=== PATIENT | male | born 1970 | race American Indian/Alaskan Native ===

== ENCOUNTER 2020-08-27 03:18 | Observation (INO) | payer MEDICAID, OTHER ==
--- NOTE | 2020-08-27 03:26 | EDM.PDOC ---
ED HPI GENERAL MEDICAL PROBLEM - General Chief Complaint: Chest Pain Stated Complaint: AMBULANCE Time Seen by Provider: 08/27/20 03:26 Source of Information: Reports: Patient, EMS, EMS Notes Reviewed, RN, RN Notes Reviewed History Limitations: Reports: No Limitations - History of Present Illness INITIAL COMMENTS - FREE TEXT/NARRATIVE: Patient presents to ER per [facility] with complaint of shortness of breath and left lateral rib pain. Patient states he fell in the shower on Tuesday and has had left-sided rib pain since then. Patient states he does use IV meth, last used 2 to 3 days ago, as well as marijuana. Patient states he has a significant cardiac history, states he has been told he only had 4 months to live. Patient has had open heart surgery to replace valves, 3 to 4 years ago. Patient states he is from [place], states he is homeless and lives on the streets when he is in [place], states he comes back to the [facility] to visit his brother for a few weeks, then goes back to [place]. Onset: Gradual Left Flank Pain Score (Numeric/FACES): 8 - Related Data Allergies Allergy/AdvReac Type Severity Reaction Status Date / Time codeine Allergy Rash Verified 08/27/20 03:31 acetaminophen [From NyQuil] AdvReac Agitation Verified 08/27/20 03:31 dextromethorphan HBr AdvReac Agitation Verified 08/27/20 03:31 [From NyQuil] doxylamine succinate AdvReac Agitation Verified 08/27/20 03:31 [From NyQuil] pseudoephedrine HCl AdvReac Agitation Verified 08/27/20 03:31 [From NyQuil] Home Meds: Home Meds . [Unable to Verify Home Med List] 08/27/20 [History] Social & Family History - Tobacco Use Tobacco Use Status *Q: Current Every Day Tobacco User Years of Tobacco use: 30 Packs/Tins Daily: 0.3 Used Tobacco, but Quit: No Second Hand Smoke Exposure: No - Caffeine Use Caffeine Use: Reports: None - Recreational Drug Use Recreational Drug Use: Yes Drug Use in Last 12 Months: Yes Recreational Drug Type: Reports: Methamphetamine Recreational Drug Use Frequency: Binges ED ROS GENERAL - Review of Systems Review Of Systems: Comprehensive ROS is negative, except as noted in HPI. ED EXAM, GENERAL - Physical Exam Exam: See Below General Appearance: Alert, WD/WN, Anxious, Moderate Distress Eye Exam: Bilateral Eye: EOMI, Normal Inspection Ears: Normal External Exam, Hearing Grossly Normal Nose: Normal Inspection Throat/Mouth: Normal Inspection, Normal Voice, No Airway Compromise Head: Atraumatic, Normocephalic Neck: Normal Inspection, Supple, Non-Tender, Full Range of Motion Respiratory/Chest: No Respiratory Distress, No Accessory Muscle Use, Crackles (bases bilaterally), Other (left lateral rib pain, ecchymosis to the left lateral ribs) Cardiovascular: Regular Rate, Rhythm, Systolic Murmur, Other (+2-3 lower extremity edema) Peripheral Pulses: 1+: Dorsalis Pedis (L), Dorsalis Pedis (R), 2+: Radial (L), Radial (R) GI/Abdominal: Normal Bowel Sounds, Soft, Non-Tender (Male) Exam: Deferred Rectal (Males) Exam: Deferred Back Exam: Normal Inspection, Decreased Range of Motion Extremities: Non-Tender, Other (lower extremity edema +2-3, states feet are cold and hurt when they are cold) Neurological: Alert, Inattentive, Other (restless) Psychiatric: Anxious Skin Exam: Warm, Dry, Intact, Normal Color, No Rash, Ecchymosis (left lateral ribs) Lymphatic: No Adenopathy Course - Vital Signs Last Recorded V/S: Last Vital Signs Temp 97.2 F 08/27/20 03:13 Pulse 94 08/27/20 03:13 Resp 24 H 08/27/20 03:13 BP 110/76 08/27/20 03:13 Pulse Ox 95 08/27/20 03:13 - Orders/Labs/Meds Orders: Active Orders 24 hr Category Date Time Status EKG Documentation Completion [RC] STAT Care 08/27/20 03:19 Active Labs: Laboratory Tests 08/27/20 08/27/20 08/27/20 Range/Units 03:14 03:14 03:19 WBC 7.0 (5.0-10.0) 10^3/uL RBC 4.78 (4.6-6.2) 10^6/uL Hgb 13.9 L (14.0-18.0) g/dL Hct 42.2 (40.0-54.0) % MCV 88.3 (80-100) fL MCH 29.1 (27.0-34.0) pg MCHC 32.9 L (33.0-35.0) g/dL Plt Count 159 (150-450) 10^3/uL Neut % (Auto) 64.5 (42.2-75.2) % Lymph % (Auto) 18.7 L (20.5-50.1) % [place] % (Auto) 13.3 H (2-8) % Eos % (Auto) 1.9 (1.0-3.0) % Baso % (Auto) 1.6 H (0.0-1.0) % Add Manual Diff Yes Neutrophils % (Manual) 64 (42-75) % Lymphocytes % (Manual) 21 (20-50) % Monocytes % (Manual) 14 H (2-8) % Eosinophils % (Manual) 1 (1-3) % Platelet Estimate Adequate Sodium 138 (136-145) mmol/L Potassium 3.6 (3.5-5.1) mmol/L Chloride 103 (98-107) mmol/L Carbon Dioxide 30 (21-32) mmol/L Anion Gap 8.6 (7-13) mEq/L BUN 22 H (7-18) mg/dL Creatinine 1.56 H (0.70-1.30) mg/dL Est Cr Clr Drug Dosing 57.84 mL/min Estimated GFR (MDRD) 47 BUN/Creatinine Ratio 14.1 (No establ ref range) Glucose 105 H (74-99) mg/dL Calcium 8.5 (8.5-10.1) mg/dL Magnesium 2.0 (1.8-2.4) mg/dL Total Bilirubin 2.3 H (0.2-1.0) mg/dL AST 29 (15-37) U/L ALT 19 (16-63) U/L Alkaline Phosphatase 107 (46-116) U/L Troponin I < 0.017 (0.000-0.056) ng/mL C-Reactive Protein (0.0-0.9) mg/dL B-Natriuretic Peptide 173 H (0-100) pg/ml Total Protein 6.4 (6.4-8.2) g/dL Albumin 3.1 L (3.4-5.0) g/dL Globulin 3.3 Albumin/Globulin Ratio 0.94 Amylase (25-115) U/L Lipase (73-393) U/L Urine Color (YELLOW) Urine Appearance (CLEAR) Urine pH (5.0-9.0) Ur Specific [place] (1.005-1.030) Urine Protein (NEGATIVE) Urine Glucose (UA) (NEGATIVE) Urine Ketones (NEGATIVE) Urine Occult Blood (NEGATIVE) Urine Nitrite (NEGATIVE) Urine Bilirubin (NEGATIVE) Urine Urobilinogen (0.2-1.0) mg/dL Ur Leukocyte Esterase (NEGATIVE) Urine RBC /HPF Urine WBC (0-5/HPF) /HPF Ur Epithelial Cells (NOT SEEN) /HPF Amorphous Sediment (NOT SEEN) /HPF Urine Bacteria (0-FEW/HPF) /HPF Fine Granular Casts (NOT SEEN) /LPF Urine Mucus (NOT SEEN) /LPF Urine Opiates Screen (NEGATIVE) Ur Oxycodone Screen (NEGATIVE) Urine Methadone Screen (NEGATIVE) Ur Barbiturates Screen (NEGATIVE) U Tricyclic Antidepress (NEGATIVE) Ur Phencyclidine Scrn (NEGATIVE) Ur Amphetamine Screen (NEGATIVE) U Methamphetamines Scrn (NEGATIVE) Urine MDMA Screen (NEGATIVE) U Benzodiazepines Scrn (NEGATIVE) Urine Cocaine Screen (NEGATIVE) U Marijuana (THC) Screen (NEGATIVE) Ethyl Alcohol < 3 (0) mg/dL SARS CoV-2 RNA Rapid MILADY (NEGATIVE) 08/27/20 08/27/20 08/27/20 Range/Units 03:19 04:18 04:18 WBC (5.0-10.0) 10^3/uL RBC (4.6-6.2) 10^6/uL Hgb (14.0-18.0) g/dL Hct (40.0-54.0) % MCV (80-100) fL MCH (27.0-34.0) pg MCHC (33.0-35.0) g/dL Plt Count (150-450) 10^3/uL Neut % (Auto) (42.2-75.2) % Lymph % (Auto) (20.5-50.1) % [place] % (Auto) (2-8) % Eos % (Auto) (1.0-3.0) % Baso % (Auto) (0.0-1.0) % Add Manual Diff Neutrophils % (Manual) (42-75) % Lymphocytes % (Manual) (20-50) % Monocytes % (Manual) (2-8) % Eosinophils % (Manual) (1-3) % Platelet Estimate Sodium (136-145) mmol/L Potassium (3.5-5.1) mmol/L Chloride (98-107) mmol/L Carbon Dioxide (21-32) mmol/L Anion Gap (7-13) mEq/L BUN (7-18) mg/dL Creatinine (0.70-1.30) mg/dL Est Cr Clr Drug Dosing mL/min Estimated GFR (MDRD) BUN/Creatinine Ratio (No establ ref range) Glucose (74-99) mg/dL Calcium (8.5-10.1) mg/dL Magnesium (1.8-2.4) mg/dL Total Bilirubin (0.2-1.0) mg/dL AST (15-37) U/L ALT (16-63) U/L Alkaline Phosphatase (46-116) U/L Troponin I (0.000-0.056) ng/mL C-Reactive Protein 2.0 H (0.0-0.9) mg/dL B-Natriuretic Peptide (0-100) pg/ml Total Protein (6.4-8.2) g/dL Albumin (3.4-5.0) g/dL Globulin Albumin/Globulin Ratio Amylase 24 L (25-115) U/L Lipase 57 L (73-393) U/L Urine Color Yellow (YELLOW) Urine Appearance Clear (CLEAR) Urine pH 5.5 (5.0-9.0) Ur Specific [place] >= 1.030 (1.005-1.030) Urine Protein 30 H (NEGATIVE) Urine Glucose (UA) Negative (NEGATIVE) Urine Ketones Negative (NEGATIVE) Urine Occult Blood Negative (NEGATIVE) Urine Nitrite Negative (NEGATIVE) Urine Bilirubin Negative (NEGATIVE) Urine Urobilinogen 1.0 (0.2-1.0) mg/dL Ur Leukocyte Esterase Negative (NEGATIVE) Urine RBC Not seen /HPF Urine WBC 0-5 (0-5/HPF) /HPF Ur Epithelial Cells Few (NOT SEEN) /HPF Amorphous Sediment Few (NOT SEEN) /HPF Urine Bacteria Rare (0-FEW/HPF) /HPF Fine Granular Casts Occasional H (NOT SEEN) /LPF Urine Mucus Rare (NOT SEEN) /LPF Urine Opiates Screen Negative (NEGATIVE) Ur Oxycodone Screen Positive H (NEGATIVE) Urine Methadone Screen Negative (NEGATIVE) Ur Barbiturates Screen Negative (NEGATIVE) U Tricyclic Antidepress Negative (NEGATIVE) Ur Phencyclidine Scrn Negative (NEGATIVE) Ur Amphetamine Screen Positive H (NEGATIVE) U Methamphetamines Scrn Positive H (NEGATIVE) Urine MDMA Screen Negative (NEGATIVE) U Benzodiazepines Scrn Negative (NEGATIVE) Urine Cocaine Screen Negative (NEGATIVE) U Marijuana (THC) Screen Positive H (NEGATIVE) Ethyl Alcohol (0) mg/dL SARS CoV-2 RNA Rapid MILADY (NEGATIVE) 08/27/20 Range/Units 04:55 WBC (5.0-10.0) 10^3/uL RBC (4.6-6.2) 10^6/uL Hgb (14.0-18.0) g/dL Hct (40.0-54.0) % MCV (80-100) fL MCH (27.0-34.0) pg MCHC (33.0-35.0) g/dL Plt Count (150-450) 10^3/uL Neut % (Auto) (42.2-75.2) % Lymph % (Auto) (20.5-50.1) % [place] % (Auto) (2-8) % Eos % (Auto) (1.0-3.0) % Baso % (Auto) (0.0-1.0) % Add Manual Diff Neutrophils % (Manual) (42-75) % Lymphocytes % (Manual) (20-50) % Monocytes % (Manual) (2-8) % Eosinophils % (Manual) (1-3) % Platelet Estimate Sodium (136-145) mmol/L Potassium (3.5-5.1) mmol/L Chloride (98-107) mmol/L Carbon Dioxide (21-32) mmol/L Anion Gap (7-13) mEq/L BUN (7-18) mg/dL Creatinine (0.70-1.30) mg/dL Est Cr Clr Drug Dosing mL/min Estimated GFR (MDRD) BUN/Creatinine Ratio (No establ ref range) Glucose (74-99) mg/dL Calcium (8.5-10.1) mg/dL Magnesium (1.8-2.4) mg/dL Total Bilirubin (0.2-1.0) mg/dL AST (15-37) U/L ALT (16-63) U/L Alkaline Phosphatase (46-116) U/L Troponin I (0.000-0.056) ng/mL C-Reactive Protein (0.0-0.9) mg/dL B-Natriuretic Peptide (0-100) pg/ml Total Protein (6.4-8.2) g/dL Albumin (3.4-5.0) g/dL Globulin Albumin/Globulin Ratio Amylase (25-115) U/L Lipase (73-393) U/L Urine Color (YELLOW) Urine Appearance (CLEAR) Urine pH (5.0-9.0) Ur Specific [place] (1.005-1.030) Urine Protein (NEGATIVE) Urine Glucose (UA) (NEGATIVE) Urine Ketones (NEGATIVE) Urine Occult Blood (NEGATIVE) Urine Nitrite (NEGATIVE) Urine Bilirubin (NEGATIVE) Urine Urobilinogen (0.2-1.0) mg/dL Ur Leukocyte Esterase (NEGATIVE) Urine RBC /HPF Urine WBC (0-5/HPF) /HPF Ur Epithelial Cells (NOT SEEN) /HPF Amorphous Sediment (NOT SEEN) /HPF Urine Bacteria (0-FEW/HPF) /HPF Fine Granular Casts (NOT SEEN) /LPF Urine Mucus (NOT SEEN) /LPF Urine Opiates Screen (NEGATIVE) Ur Oxycodone Screen (NEGATIVE) Urine Methadone Screen (NEGATIVE) Ur Barbiturates Screen (NEGATIVE) U Tricyclic Antidepress (NEGATIVE) Ur Phencyclidine Scrn (NEGATIVE) Ur Amphetamine Screen (NEGATIVE) U Methamphetamines Scrn (NEGATIVE) Urine MDMA Screen (NEGATIVE) U Benzodiazepines Scrn (NEGATIVE) Urine Cocaine Screen (NEGATIVE) U Marijuana (THC) Screen (NEGATIVE) Ethyl Alcohol (0) mg/dL SARS CoV-2 RNA Rapid MILADY Negative (NEGATIVE) Meds: Medications Discontinued Medications Generic Name Dose Route Start Last Admin Trade Name Freq PRN Reason Stop Dose Admin Fentanyl 50 mcg 08/27/20 04:28 08/27/20 04:35 Sublimaze IVPUSH 08/27/20 04:29 50 mcg ONETIME ONE Administration Lorazepam 0.5 mg 08/27/20 04:01 08/27/20 04:05 Ativan IVPUSH 08/27/20 04:02 0.5 mg ONETIME ONE Administration - Radiology Interpretation Free Text/Narrative:: CT Chest Abdomen/Pelvis wo contrast: PROCEDURE INFORMATION: Exam: CT Chest Without Contrast; Diagnostic Exam date and time: 08/27/2020 5:09 AM Age: 49 years old Clinical indication: Other: Low rib pain, fell in shower; Other: Left rib pain; Additional info: SOB, left lateral rib pain TECHNIQUE: Imaging protocol: Diagnostic computed tomography of the chest without contrast. Radiation optimization: All CT scans at this facility use at least one of these dose optimization techniques: automated exposure control; mA and/or kV adjustment per patient size (includes targeted exams where dose is matched to clinical indication); or iterative reconstruction. COMPARISON: No relevant prior studies available. FINDINGS: Lungs: Bilateral dependent atelectasis. Pleural space: Unremarkable. No pneumothorax. No pleural effusion. Heart: Status post median sternotomy and probably mitral valve replacement. Cardiomegaly. Aorta: Unremarkable. No aortic aneurysm. Lymph nodes: Unremarkable. No enlarged lymph nodes. Bones/joints: Multilevel degenerative disease of the thoracic spine. Age- indeterminate possibly acute fracture of the left anterior 5th rib at the costochondral junction. Soft tissues: Unremarkable. IMPRESSION: Age-indeterminate possibly acute fracture of the left anterior 5th rib at the costochondral junction. No pneumothorax. No pulmonary contusions. PROCEDURE INFORMATION: Exam: CT Abdomen And Pelvis Without Contrast Exam date and time: 08/27/2020 5:09 AM Age: 49 years old Clinical indication: Other: Low rib pain, fell in shower; Other: Left rib pain; Additional info: SOB, left lateral rib pain TECHNIQUE: Imaging protocol: Computed tomography of the abdomen and pelvis without contrast. Radiation optimization: All CT scans at this facility use at least one of these dose optimization techniques: automated exposure control; mA and/or kV adjustment per patient size (includes targeted exams where dose is matched to clinical indication); or iterative reconstructi on. COMPARISON: No relevant prior studies available. FINDINGS: Liver: Normal. No mass. Gallbladder and bile ducts: Nonspecific stranding of the pericholecystic fat. Pancreas: Normal. No ductal dilation. Spleen: Normal. No splenomegaly. Adrenal glands: Normal. No mass. Kidneys and ureters: Nonspecific bilateral perinephric fat stranding. Stomach and bowel: Unremarkable. No obstruction. No mucosal thickening. Appendix: No evidence of appendicitis. Intraperitoneal space: Small ascites. Vasculature: Atherosclerotic disease. Lymph nodes: Bilateral inguinal adenopathy, left worse than right. Urinary bladder: Unremarkable as visualized. Reproductive: Unremarkable as visualized. Bones/joints: Unremarkable. No acute fracture. Soft tissues: Unremarkable. Other findings: Degraded by motion. IMPRESSION: Suboptimal due to lack of intravenous contrast and motion degradation. Small ascites. Nonspecific bilateral perinephric fat stranding. No acute fractures. Thank you for allowing us to participate in the care of your patient. Dictated and Authenticated by: Saúl Lutz MD 08/27/2020 5:53 AM Central Time ([place] & [place]) See rad report - Re-Assessments/Exams Free Text/Narrative Re-Assessment/Exam: 08/27/20 06:34 Discussed patient case with Dr. Mclaughlin who agreed to accept the patient for observation admission. Departure - Departure Time of Disposition: 06:36 Disposition: Refer to Observation Reason for Transfer *Q: Other Condition: Fair Clinical Impression: Methamphetamine intoxication Right rib fracture Qualifiers: Encounter type: initial encounter Rib fracture type: single rib Fracture type: closed Qualified Code(s): S22.31XA - Fracture of one rib, right side, initial encounter for closed fracture Forms: ED Department Discharge Sepsis Event Note (ED) - Evaluation Sepsis Screening Result: No Definite Risk - Focused Exam Vital Signs: Vital Signs Temp Pulse Resp BP Pulse Ox 08/27/20 03:13 97.2 F 94 24 H 110/76 95 - My Orders Last 24 Hours: My Active Orders 08/27/20 03:19 EKG Documentation Completion [RC] STAT - Assessment/Plan Last 24 Hours: My Active Orders 08/27/20 03:19 EKG Documentation Completion [RC] STAT
[2020-08-27 03:45] LABS: ANION GAP 8.6 mEq/L (7-13); CHLORIDE,CL 103 mmol/L (98-107); SODIUM,NA 138 mmol/L (136-145)
[2020-08-27] MEDS ORDERED: LORazepam 2 MG/ML SDV IVPUSH ONE (04:01)
[2020-08-27] MEDS ORDERED: fentaNYL 100 MCG/2 ML SDV IVPUSH ONE (04:28)
--- NOTE | 2020-08-27 05:53 | CT ---
PROCEDURE INFORMATION: Exam: CT Chest Without Contrast; Diagnostic Exam date and time: 08/27/2020 5:09 AM Age: 49 years old Clinical indication: Other: Low rib pain, fell in shower; Other: Left rib pain; Additional info: SOB, left lateral rib pain TECHNIQUE: Imaging protocol: Diagnostic computed tomography of the chest without contrast. Radiation optimization: All CT scans at this facility use at least one of these dose optimization techniques: automated exposure control; mA and/or kV adjustment per patient size (includes targeted exams where dose is matched to clinical indication); or iterative reconstruction. COMPARISON: No relevant prior studies available. FINDINGS: Lungs: Bilateral dependent atelectasis. Pleural space: Unremarkable. No pneumothorax. No pleural effusion. Heart: Status post median sternotomy and probably mitral valve replacement. Cardiomegaly. Aorta: Unremarkable. No aortic aneurysm. Lymph nodes: Unremarkable. No enlarged lymph nodes. Bones/joints: Multilevel degenerative disease of the thoracic spine. Age-indeterminate possibly acute fracture of the left anterior 5th rib at the costochondral junction. Soft tissues: Unremarkable. IMPRESSION: Age-indeterminate possibly acute fracture of the left anterior 5th rib at the costochondral junction. No pneumothorax. No pulmonary contusions. PROCEDURE INFORMATION: Exam: CT Abdomen And Pelvis Without Contrast Exam date and time: 08/27/2020 5:09 AM Age: 49 years old Clinical indication: Other: Low rib pain, fell in shower; Other: Left rib pain; Additional info: SOB, left lateral rib pain TECHNIQUE: Imaging protocol: Computed tomography of the abdomen and pelvis without contrast. Radiation optimization: All CT scans at this facility use at least one of these dose optimization techniques: automated exposure control; mA and/or kV adjustment per patient size (includes targeted exams where dose is matched to clinical indication); or iterative reconstruction. COMPARISON: No relevant prior studies available. FINDINGS: Liver: Normal. No mass. Gallbladder and bile ducts: Nonspecific stranding of the pericholecystic fat. Pancreas: Normal. No ductal dilation. Spleen: Normal. No splenomegaly. Adrenal glands: Normal. No mass. Kidneys and ureters: Nonspecific bilateral perinephric fat stranding. Stomach and bowel: Unremarkable. No obstruction. No mucosal thickening. Appendix: No evidence of appendicitis. Intraperitoneal space: Small ascites. Vasculature: Atherosclerotic disease. Lymph nodes: Bilateral inguinal adenopathy, left worse than right. Urinary bladder: Unremarkable as visualized. Reproductive: Unremarkable as visualized. Bones/joints: Unremarkable. No acute fracture. Soft tissues: Unremarkable. Other findings: Degraded by motion. IMPRESSION: Suboptimal due to lack of intravenous contrast and motion degradation. Small ascites. Nonspecific bilateral perinephric fat stranding. No acute fractures.
[2020-08-27] MEDS ORDERED: Sodium Chloride 0.9% 10 ML Syringe FLUSH PRN (07:53)
[2020-08-27] MEDS ORDERED: Acetaminophen 325 MG Tab PO PRN (07:53)
[2020-08-27] MEDS ORDERED: Docusate Sodium 100 MG Cap PO PRN (07:53)
[2020-08-27] MEDS ORDERED: Non-Formulary Medication 1 Each (Ketoconazole [Nizoral 2% Crm] 1 APPLIC) TOP PRN (08:58)
[2020-08-27] MEDS: Carvedilol 3.125 MG Tab PO SCH (10:18)
[2020-08-27] MEDS: Thiamine 100 MG Tab PO SCH (10:18)
[2020-08-27] MEDS: atorvaSTATin 10 MG Tab PO SCH (10:19)
[2020-08-27] MEDS: Furosemide 40 MG Tab PO SCH (10:19)
[2020-08-27] MEDS: Folic Acid 1 MG Tab PO SCH (10:19)
[2020-08-27] MEDS: Aspirin 81 MG Tab.EC PO SCH (10:19)
[2020-08-27] MEDS: Gabapentin 300 MG Cap PO SCH ×3 (10:19→20:08)
[2020-08-27] MEDS: Lisinopril 5 MG Tab PO SCH (10:19)
[2020-08-27] MEDS ORDERED: QUEtiapine 100 MG Tab PO SCH ×2 (11:00→21:00)
[2020-08-27] MEDS: Nicotine 21 MG/24 Hr Patch TRDERM SCH (11:12)
[2020-08-27] MEDS: Enoxaparin 40 MG/0.4 ML Syringe SUBCUT SCH (11:13)
--- NOTE | 2020-08-27 14:48 | HP ---
CHIEF COMPLAINT: Chest pain. HISTORY OF PRESENT ILLNESS: The patient is a 49-year-old male who was admitted through the emergency room because the patient was complaining of shortness of breath and left rib cage pain. The patient mentioned that about 5 days ago he fell in the shower and since then had left-sided rib pain. This is also accompanied by some shortness of breath. In the emergency room, the patient had a CAT scan of the chest, which showed rib fracture on the 5th rib. The patient was also noted to be positive for methamphetamine and marijuana. Because of the patient's agitation and restlessness and chest pain, the patient was admitted to observation. The patient denies any fever or chills, headache, abdominal pain, cough, nor any other complaints. PAST MEDICAL HISTORY: The patient has history of valve replacement, pulmonary hypertension, and history of CHF. HOME MEDICATIONS: Not available at this time. REVIEW OF SYSTEMS: As in HPI. The rest of the review of systems is negative. ALLERGIES: Codeine, NyQuil, dextromethorphan, doxylamine, and pseudoephedrine. SOCIAL HISTORY: The patient is from [place]. Smokes cigarettes, but denies any alcohol drinks, but does illicit drug use. PHYSICAL EXAMINATION: General: The patient is alert, oriented, not in any acute distress. Vital Signs: Blood pressure is 110/76, pulse of 94, respirations 24, temperature of 97.2, pulse oximetry is 95% on room air. SHEENT: Normocephalic. There are pink palpebral conjunctivae. Sclerae anicteric. No JVD. No lymphadenopathy. No signs of trauma. Neck: Supple. Heart: Regular. There is a grade 2/6 systolic ejection murmur. No rubs. Lungs: Equal bilaterally. No crackles, no wheezing. Abdomen: Mild to moderately obese, soft, nontender. Bowel sounds positive. Extremities: Negative for any pedal edema. No gross deformities. Chest Wall: Remarkable for reproducible tenderness with palpation on the left chest wall area. Neurologic: Negative for any lateralizing signs. LABORATORY DATA: CBC: WBC is 7, hemoglobin is 13.9, hematocrit 42.2, platelets are 159. Comp panel remarkable for BUN of 22, creatinine of 1.56, glucose of 105, total bilirubin of 2.3, and the rest of the panel unremarkable. Troponin is less than 0.017. BNP is 173. Urinalysis unremarkable. Urine drug screen is positive for oxycodone and amphetamine and methamphetamine and marijuana. CAT scan of the chest and abdomen showed suboptimal due to lack of intravenous contrast. There is small ascites. There is possibly acute fracture of the left anterior 5th rib at the costochondral junction. Otherwise, CAT scan of the chest unremarkable. ADMITTING DIAGNOSES: 1. History of fall with chest wall pain and rib fracture on the left 5th rib. 2. Methamphetamine use and intoxication. 3. History of heart valve replacement. 4. History of pulmonary hypertension. TREATMENT PLAN: The patient is going to be admitted to observation for pain management and the rest of the management as necessary. The patient is a full code as per his wishes. We will also obtain his medication and will resume it. [facility] /[id number]
[2020-08-27] MEDS: Tamsulosin 0.4 MG Cap.ER PO SCH (15:09)
[2020-08-27] MEDS: traMADol 50 MG Tab PO PRN (20:07)
[2020-08-27] MEDS: Doxycycline Monohydrate 100 MG Cap PO SCH (21:15)
[2020-08-28] MEDS: traMADol 50 MG Tab PO PRN ×2 (03:15→09:18)
[2020-08-28] MEDS: Aspirin 81 MG Tab.EC PO SCH (09:17)
[2020-08-28] MEDS: Thiamine 100 MG Tab PO SCH (09:17)
[2020-08-28] MEDS: Lisinopril 5 MG Tab PO SCH (09:17)
[2020-08-28] MEDS: Gabapentin 300 MG Cap PO SCH (09:19)
[2020-08-28] MEDS: Carvedilol 3.125 MG Tab PO SCH (09:20)
[2020-08-28] MEDS: Folic Acid 1 MG Tab PO SCH (09:20)
[2020-08-28] MEDS: Doxycycline Monohydrate 100 MG Cap PO SCH (09:20)
[2020-08-28] MEDS: atorvaSTATin 10 MG Tab PO SCH (09:20)
[2020-08-28] MEDS: Furosemide 40 MG Tab PO SCH (09:20)
[2020-08-28] MEDS: Nicotine 21 MG/24 Hr Patch TRDERM SCH (09:22)
[2020-08-28] MEDS: Enoxaparin 40 MG/0.4 ML Syringe SUBCUT SCH (09:22)
[2020-08-28] MEDS ORDERED: Cyanocobalamin (Vitamin B12) 100 MCG Tab PO SCH (10:00)
--- NOTE | 2020-08-28 10:50 | DISCH ---
FINAL DIAGNOSES: 1. History of fall with chest wall pain and rib fracture of the left 5th rib. 2. Methamphetamine use and intoxication. 3. History of valve replacement. 4. History of pulmonary hypertension. 5. Eczema left eye. BRIEF HISTORY OF PRESENT ILLNESS: The patient is a 49-year-old male who was admitted through the emergency room because of shortness of breath and left rib cage pain after a fall 5 days prior to presentation. CAT scan of the chest showed rib fracture of the 5th rib and urine drug screen was positive for methamphetamine and marijuana. The patient was admitted to telemetry floor and telemetry remained in sinus rhythm with no significant arrhythmia. He was also started on tramadol for pain management, which did help and controlled that rib cage pain. He was also resumed on his home medication including aspirin, atorvastatin, Coreg, vitamin B12, folic acid, Lasix, gabapentin, lisinopril, and quetiapine. The patient did well. Hospital course was uncomplicated and he was subsequently discharged. CONDITION ON DISCHARGE: Improved. DISCHARGE INSTRUCTION: The patient is going to be resumed on his previous home medication and additional medication for Ultram 50 mg t.i.d. p.r.n. for pain management, and patient also to continue with the doxycycline 100 mg b.i.d. for the next 7 days for the eczema on the left eye. He is going to follow up with his primary care provider in 7 to 10 days for recheck. [facility] /[id number]
[2020-08-28 13:12] VITALS: BP 122/84; PULSE 85
[2020-08-28] MEDS ORDERED: Doxycycline Monohydrate 100 MG Cap ONE (13:25)
[2020-08-28] MEDS ORDERED: traMADol 50 MG Tab ONE (13:26)
[2020-08-28] MEDS: Tamsulosin 0.4 MG Cap.ER PO SCH (13:35)
[2020-08-28] MEDS ORDERED: Doxycycline 100 MG Vial IV ONE (13:54)
[2020-08-28] MEDS ORDERED: traMADol 50 MG Tab PO ONE (13:54)
--- NOTE | 2020-09-01 08:23 | PN ---
DATE: 08/28/2020 SUBJECTIVE: The patient is a 49-year-old male who was admitted because of left rib cage pain and shortness of breath after a fall and also for meth intoxication. The patient this morning is doing well and the tramadol that we are giving him for pain management is controlling the pain. We also started him yesterday on doxycycline for an ecthyma on the left thigh. The patient overall has been doing well and telemetry has been sinus rhythm with no significant arrhythmia, and the patient denies any other ongoing complaints. LABORATORY DATA: Lab workup this morning, troponin is less than 0.017. OBJECTIVE: Vital Signs: Blood pressure is 106/78, pulse of 88, respirations of 18, temperature of 98.3, and saturation is 95% on room air. Heart: Regular rate and rhythm. Normal S1 and S2. No gallops, no rubs. Lungs: Equal bilaterally. No crackles, no wheezing. Abdomen: Soft, nontender. Bowel sounds positive. Extremities: Negative for any pedal edema. No calf tenderness. PLAN: We will continue with his present management and I did discuss with the patient that since he has done well and he mentioned that he is ready to be discharged. We will continue with tramadol as an outpatient. We will also continue with doxycycline and then we will have him follow up with his primary care physician in 7 to 10 days. [facility] /[id number]
== END 2020-08-28 13:55 | disposition home or self-care (01) ==
LOC: DL.ED 03:18 → DL.MS 06:37 → UNDOADMOB 06:38
PROVIDERS: ADMIT Internal Medicine; ATTEND Internal Medicine
DX: S22.32XA Fracture of one rib, left side, initial encounter for closed fracture (principal); I50.9 Heart failure, unspecified; I27.20 Pulmonary hypertension, unspecified; F17.210 Nicotine dependence, cigarettes, uncomplicated; F15.129 Other stimulant abuse with intoxication, unspecified; Z95.4 Presence of other heart-valve replacement; Z79.899 Other long term (current) drug therapy; Z88.5 Allergy status to narcotic agent; Z88.8 Allergy status to other drugs, medicaments and biological substances; Z20.828 Contact with and (suspected) exposure to other viral communicable diseases
CPT/HCPCS: 36415; 71250; 74176; 80053; 80305; 80307; 81001; 82150; 83690; 83735; 83880; 84484; 85025; 86140; 87635; 93005; 96374; 96375; 99285; A9270; J1650; J2060; J3010; J3490; 96372; G0378; U0002

== ENCOUNTER 2020-09-22 02:09 | Emergency (ER) | payer MEDICAID ==
--- NOTE | 2020-09-22 02:18 | EDM.PDOCBH ---
ED HPI GENERAL MEDICAL PROBLEM - General Chief Complaint: Drug or Alcohol Abuse Stated Complaint: AMBULANCE Time Seen by Provider: 09/22/20 02:14 Source of Information: Reports: Patient, EMS History Limitations: Reports: No Limitations - History of Present Illness INITIAL COMMENTS - FREE TEXT/NARRATIVE: EMS called to pt c/o SOB, left shoulder pain, dizziness. admits to meth usage. Left Shoulder Pain Score (Numeric/FACES): 7 - Related Data Allergies Allergy/AdvReac Type Severity Reaction Status Date / Time codeine Allergy Rash Verified 09/22/20 02:23 acetaminophen [From NyQuil] AdvReac Agitation Verified 09/22/20 02:23 dextromethorphan HBr AdvReac Agitation Verified 09/22/20 02:23 [From NyQuil] doxylamine succinate AdvReac Agitation Verified 09/22/20 02:23 [From NyQuil] pseudoephedrine HCl AdvReac Agitation Verified 09/22/20 02:23 [From NyQuil] Home Meds: Home Meds Aspirin [Aspirin EC] 81 mg PO DAILY 08/27/20 [History] Cyanocobalamin (Vitamin B-12) [Vitamin B-12] 250 mcg PO DAILY 08/27/20 [History] Folic Acid 0.8 mg PO DAILY 08/27/20 [History] Furosemide [Lasix] 40 mg PO DAILY 08/27/20 [History] Gabapentin [Neurontin] 600 mg PO TID 08/27/20 [History] Ketoconazole [Nizoral 2% Crm] 1 applic TOP BID PRN 08/27/20 [History] QUEtiapine [SEROquel] 100 mg PO DAILY 08/27/20 [History] Tamsulosin HCl [Flomax] 0.4 mg PO DAILY 08/27/20 [History] Thiamine HCl [Vitamin B-1] 100 mg PO DAILY 08/27/20 [History] atorvaSTATin [Lipitor] 10 mg PO DAILY 08/27/20 [History] carvediloL [Carvedilol] 3.125 mg PO DAILY 08/27/20 [History] lisinopriL [Lisinopril] 5 mg PO DAILY 08/27/20 [History] Doxycycline Monohydrate 100 mg PO BID #14 cap 08/28/20 [Rx] traMADol [Ultram] 50 mg PO Q6H PRN 5 Days #20 tablet 08/28/20 [Rx] Past Medical History Cardiovascular History: Reports: Cardiomyopathy, Heart Failure, Heart Murmur, Heart Valve Replacement, Hypertension, PR Musculoskeletal History: Reports: Other (See Below) Other Musculoskeletal History: ankle fx hx Psychiatric History: Reports: Addiction, Depression - Infectious Disease History Infectious Disease History: Reports: Novel Coronavirus Other Infectious Disease History: COVID April2020 - Past Surgical History HEENT Surgical History: Reports: Oral Surgery Cardiovascular Surgical History: Reports: Valve Replacement ED ROS GENERAL - Review of Systems Review Of Systems: Comprehensive ROS is negative, except as noted in HPI. ED EXAM, BEHAVIORAL HEALTH - Physical Exam Exam: See Below Exam Limited By: No Limitations General Appearance: Alert, WD/WN, Anxious, Mild Distress, Other (restless agitated) Eye Exam: Bilateral Eye: PERRL (pupils ess ER @ 4mm) COURSE, BEHAVIORAL HEALTH COMP - Course Vital Signs: Last Vital Signs Temp 36.3 C 09/22/20 02:24 Pulse 82 09/22/20 02:24 Resp 16 09/22/20 02:24 BP 95/79 09/22/20 02:24 Pulse Ox 97 09/22/20 02:24 Orders, Labs, Meds: Laboratory Tests 09/22/20 09/22/20 09/22/20 Range/Units 02:28 02:28 03:30 WBC 5.0 (5.0-10.0) 10^3/uL RBC 5.21 (4.6-6.2) 10^6/uL Hgb 14.9 (14.0-18.0) g/dL Hct 45.0 (40.0-54.0) % MCV 86.4 (80-100) fL MCH 28.6 (27.0-34.0) pg MCHC 33.1 (33.0-35.0) g/dL Plt Count 160 (150-450) 10^3/uL Neut % (Auto) 65.9 (42.2-75.2) % Lymph % (Auto) 21.9 (20.5-50.1) % [place] % (Auto) 7.0 (2-8) % Eos % (Auto) 2.8 (1.0-3.0) % Baso % (Auto) 2.4 H (0.0-1.0) % Sodium 140 (136-145) mmol/L Potassium 3.6 (3.5-5.1) mmol/L Chloride 105 (98-107) mmol/L Carbon Dioxide 26 (21-32) mmol/L Anion Gap 12.6 (7-13) mEq/L BUN 22 H (7-18) mg/dL Creatinine 1.63 H (0.70-1.30) mg/dL Est Cr Clr Drug Dosing TNP Estimated GFR (MDRD) 45 BUN/Creatinine Ratio 13.5 (No establ ref range) Glucose 111 H (74-99) mg/dL Calcium 8.6 (8.5-10.1) mg/dL Total Bilirubin 1.7 H (0.2-1.0) mg/dL AST 27 (15-37) U/L ALT 25 (16-63) U/L Alkaline Phosphatase 86 (46-116) U/L Troponin I 0.029 (0.000-0.056) ng/mL Total Protein 5.8 L (6.4-8.2) g/dL Albumin 3.1 L (3.4-5.0) g/dL Globulin 2.7 Albumin/Globulin Ratio 1.15 Urine Opiates Screen Negative (NEGATIVE) Ur Oxycodone Screen Negative (NEGATIVE) Urine Methadone Screen Negative (NEGATIVE) Ur Barbiturates Screen Negative (NEGATIVE) U Tricyclic Antidepress Positive H (NEGATIVE) Ur Phencyclidine Scrn Negative (NEGATIVE) Ur Amphetamine Screen Positive H (NEGATIVE) U Methamphetamines Scrn Positive H (NEGATIVE) Urine MDMA Screen Negative (NEGATIVE) U Benzodiazepines Scrn Negative (NEGATIVE) Urine Cocaine Screen Negative (NEGATIVE) U Marijuana (THC) Screen Positive H (NEGATIVE) Ethyl Alcohol < 3 (0) mg/dL Medications Discontinued Medications Generic Name Dose Route Start Last Admin Trade Name Freq PRN Reason Stop Dose Admin Diphenhydramine HCl 25 mg 09/22/20 04:01 09/22/20 04:57 Benadryl IVPUSH 09/22/20 04:02 25 mg ONETIME ONE Administration Re-Assessment/Re-Exam: results discussed with pt. Departure - Departure Time of Disposition: 04:45 Disposition: Home, Self-Care 01 Condition: Fair Clinical Impression: Methamphetamine abuse - Discharge Information Instructions: Methamphetamines Use Disorder Referrals: PCP,None [Primary Care Provider] - Forms: ED Department Discharge Additional Instructions: 1) don't do methamphetamine 2) may take benadryl 25mg 3 times daily to calm down Sepsis Event Note (ED) - Focused Exam Vital Signs: Vital Signs Temp Pulse Resp BP Pulse Ox 09/22/20 02:24 36.3 C 82 16 95/79 97
[2020-09-22 02:26] VITALS: BP 95/79; PULSE 82
[2020-09-22 02:58] LABS: ANION GAP 12.6 mEq/L (7-13); CHLORIDE,CL 105 mmol/L (98-107); SODIUM,NA 140 mmol/L (136-145)
[2020-09-22] MEDS ORDERED: diphenhydrAMINE 50 MG/ML SDV IVPUSH ONE (04:01)
== END 2020-09-22 04:58 | disposition home or self-care (01) ==
LOC: DL.ED 02:09
DX: F15.10 Other stimulant abuse, uncomplicated (principal); M25.512 Pain in left shoulder; I11.0 Hypertensive heart disease with heart failure; I50.9 Heart failure, unspecified; I25.2 Old myocardial infarction; F32.9 Major depressive disorder, single episode, unspecified; Z86.19 Personal history of other infectious and parasitic diseases; Z88.5 Allergy status to narcotic agent; Z79.82 Long term (current) use of aspirin; Z79.899 Other long term (current) drug therapy; Z88.8 Allergy status to other drugs, medicaments and biological substances
CPT/HCPCS: 36415; 80053; 80305; 80307; 84484; 85025; 93005; 96374; 99285; J1200

== ENCOUNTER 2020-11-28 03:13 | Emergency (ER) | payer MEDICAID ==
--- NOTE | 2020-11-28 03:17 | EDM.PDOC ---
<Thierno Elliott M - Last Filed: 11/28/20 08:03> ED HPI GENERAL MEDICAL PROBLEM - General Chief Complaint: Chest Pain Stated Complaint: AMBULANCE Time Seen by Provider: 11/28/20 03:16 - Related Data Allergies Allergy/AdvReac Type Severity Reaction Status Date / Time codeine Allergy Rash Verified 11/28/20 03:15 acetaminophen [From NyQuil] AdvReac Agitation Verified 11/28/20 03:15 dextromethorphan HBr AdvReac Agitation Verified 11/28/20 03:15 [From NyQuil] doxylamine succinate AdvReac Agitation Verified 11/28/20 03:15 [From NyQuil] pseudoephedrine HCl AdvReac Agitation Verified 11/28/20 03:15 [From NyQuil] Home Meds: Home Meds Aspirin [Aspirin EC] 81 mg PO DAILY 08/27/20 [History] Cyanocobalamin (Vitamin B-12) [Vitamin B-12] 250 mcg PO DAILY 08/27/20 [History] Folic Acid 0.8 mg PO DAILY 08/27/20 [History] Furosemide [Lasix] 40 mg PO DAILY 08/27/20 [History] Gabapentin [Neurontin] 600 mg PO TID 08/27/20 [History] Ketoconazole [Nizoral 2% Crm] 1 applic TOP BID PRN 08/27/20 [History] QUEtiapine [SEROquel] 100 mg PO DAILY 08/27/20 [History] Tamsulosin HCl [Flomax] 0.4 mg PO DAILY 08/27/20 [History] Thiamine HCl [Vitamin B-1] 100 mg PO DAILY 08/27/20 [History] atorvaSTATin [Lipitor] 10 mg PO DAILY 08/27/20 [History] carvediloL [Carvedilol] 3.125 mg PO DAILY 08/27/20 [History] lisinopriL [Lisinopril] 5 mg PO DAILY 08/27/20 [History] Doxycycline Monohydrate 100 mg PO BID #14 cap 08/28/20 [Rx] traMADol [Ultram] 50 mg PO Q6H PRN 5 Days #20 tablet 08/28/20 [Rx] Course - Re-Assessments/Exams Free Text/Narrative Re-Assessment/Exam: 11/28/20 07:28 After the patient had been in our facility for 4 hours and had his second EKG/troponin drawn, the patient was asked if he could stay still for a CT of his chest to look for any blood clots due to an elevated d-dimer level. The patient refused the study, reporting that he is claustrophobic and would not entertain any further discussion of the study. Departure - Departure Time of Disposition: 08:03 Disposition: Home, Self-Care 01 Condition: Fair Clinical Impression: Nonspecific chest pain, Methamphetamine use Instructions: Nonspecific Chest Pain, Adult, [id number], Finding Treatment for Addiction, Methamphetamines Use Disorder Forms: ED Department Discharge Care Plan Goals: The patient was advised of the examination, lab, x-ray and EKG results during the visit. The patient refused a CT scan of his chest while he was in the ED. The patient reports no return of chest pain throughout the visit. The patient should follow-up with his primary care facility for continued evaluation and further management within a week. If the patient has any additional symptoms or concerns, the patient should either return to the emergency department or visit his primary care facility. <Kelly Landeros Gisselle - Last Filed: 11/30/20 23:47> ED HPI GENERAL MEDICAL PROBLEM - General Source of Information: Reports: Patient, EMS, RN, RN Notes Reviewed History Limitations: Reports: No Limitations - History of Present Illness INITIAL COMMENTS - FREE TEXT/NARRATIVE: Patient presents to the ED via EMS with complaints of chest pain and shortness of breath. He states the pain in his chest began last night at approximately 2300 and has maintained in that time. He notes the pain originates in his left chest and radiates into his shoulder. He characterizes the pain as constant and sharp in nature. The patient states he did not take any medication at home for this pain but notes the Nitro he was given en route has improved his pain. He does attest to a history of heart surgery in [place] "..a few years ago" but he is uncertain what procedure was performed. He reports he does not follow with Cardiology as he is homeless and cannot get to his appointments. Additionally, he notes a history of CHF and HTN, but is unsure what medication he takes. He denies recent illness, fever, shaking chills, diaphoresis, vision changes, cough, sore throat, palpitations, dyspepsia, nausea, vomiting, or diarrhea. The patient does note an uncomplicated COVID infection in April 2020; he has not received the COVID vaccine. He reports smoking a 1/4 pack of cigarettes per day as well as using cannabis and methamphetamines. He states the last time he used methamphetamines was approximately two weeks ago, at which time he injected. He denies alcohol use. Past Medical History Cardiovascular History: Reports: Cardiomyopathy, Heart Failure, Heart Murmur, Heart Valve Replacement, Hypertension, OR Musculoskeletal History: Reports: Other (See Below) Other Musculoskeletal History: ankle fx hx Psychiatric History: Reports: Addiction, Depression - Infectious Disease History Infectious Disease History: Reports: Novel Coronavirus Other Infectious Disease History: COVID April2020 - Past Surgical History HEENT Surgical History: Reports: Oral Surgery Cardiovascular Surgical History: Reports: Valve Replacement Social & Family History - Caffeine Use Caffeine Use: Reports: Coffee ED ROS GENERAL - Review of Systems Review Of Systems: Comprehensive ROS is negative, except as noted in HPI. ED EXAM, GENERAL - Physical Exam Exam: See Below Exam Limited By: No Limitations General Appearance: Alert, Anxious, Moderate Distress (Chest pain and anxiety) Eye Exam: Bilateral Eye: EOMI, Normal Inspection, PERRL (3mm) Throat/Mouth: Normal Inspection, Normal Voice, No Airway Compromise Neck: Normal Inspection, Supple, Non-Tender, Full Range of Motion Respiratory/Chest: Decreased Breath Sounds, Accessory Muscle Use. No: Crackles, Rales, Rhonchi, Wheezing, Stridor Cardiovascular: Normal Peripheral Pulses, Regular Rate, Rhythm, No JVD, No Murmur, No Rub, Gallop/S3 Peripheral Pulses: 2+: Radial (L), Radial (R), Dorsalis Pedis (L), Dorsalis Pedis (R) GI/Abdominal: Normal Bowel Sounds, Soft, Non-Tender, No Distention, No Mass, Pelvis Stable Back Exam: Normal Inspection, Full Range of Motion Extremities: Normal Range of Motion, Normal Capillary Refill, Pedal Edema (+1 pitting, bilaterally), Leg Pain (To bilateral lower extremities, distally), Increased Warmth (To bilateral lower legs), Redness (To bilateral lower legs), Other (Shiny, taught appearance to skin; No hair noted to distal extremities) Neurological: Alert, Oriented, CN II-XII Intact, Normal Cognition, Normal Gait, No Motor/Sensory Deficits Psychiatric: Anxious Skin Exam: Warm, Dry, Intact, Normal Color, No Rash. No: Diaphoretic, Mottled #1 Interpretation EKG Date: 11/28/20 Time: 03:17 Rhythm: NSR Rate (Beats/Min): 78 [place]: RAD-Right [place] Deviation P-Wave: Present QRS: RBBB ST-T: Depressed (Mild depression in V2) QT: Prolonged (506) Comparison: Change From Previous EKG EKG Interpretation Comments: NSR; q-waves in V1 and aVR Course - Vital Signs Last Recorded V/S: Last Vital Signs Temp 97.7 F 11/28/20 03:15 Pulse 78 11/28/20 03:15 Resp 25 H 11/28/20 03:15 BP 101/64 11/28/20 03:15 Pulse Ox 96 11/28/20 03:15 - Orders/Labs/Meds Labs: Laboratory Tests 11/28/20 11/28/20 11/28/20 Range/Units 03:25 03:25 03:25 WBC 5.8 (5.0-10.0) 10^3/uL RBC 4.84 (4.6-6.2) 10^6/uL Hgb 13.5 L (14.0-18.0) g/dL Hct 42.1 (40.0-54.0) % MCV 87.0 (80-100) fL MCH 27.9 (27.0-34.0) pg MCHC 32.1 L (33.0-35.0) g/dL Plt Count 133 L (150-450) 10^3/uL Neut % (Auto) 70.1 (42.2-75.2) % Lymph % (Auto) 15.4 L (20.5-50.1) % [place] % (Auto) 9.5 H (2-8) % Eos % (Auto) 2.9 (1.0-3.0) % Baso % (Auto) 2.1 H (0.0-1.0) % Add Manual Diff Yes Neutrophils % (Manual) 73 (42-75) % Lymphocytes % (Manual) 15 L (20-50) % Monocytes % (Manual) 9 H (2-8) % Eosinophils % (Manual) 3 (1-3) % D-Dimer, Quantitative 932 H (0-400) ng/mL Sodium 140 (136-145) mmol/L Potassium 4.4 (3.5-5.1) mmol/L Chloride 105 (98-107) mmol/L Carbon Dioxide 29 (21-32) mmol/L Anion Gap 10.4 (7-13) mEq/L BUN 20 H (7-18) mg/dL Creatinine 1.21 (0.70-1.30) mg/dL Est Cr Clr Drug Dosing TNP Estimated GFR (MDRD) > 60 BUN/Creatinine Ratio 16.5 (No establ ref range) Glucose 92 (74-99) mg/dL Calcium 8.4 L (8.5-10.1) mg/dL Magnesium 2.2 (1.8-2.4) mg/dL Total Bilirubin 1.5 H (0.2-1.0) mg/dL AST 35 (15-37) U/L ALT 17 (16-63) U/L Alkaline Phosphatase 143 H (46-116) U/L Troponin I < 0.017 (0.000-0.056) ng/mL C-Reactive Protein 1.0 H (0.0-0.9) mg/dL B-Natriuretic Peptide (0-100) pg/ml Total Protein 6.5 (6.4-8.2) g/dL Albumin 3.0 L (3.4-5.0) g/dL Globulin 3.5 Albumin/Globulin Ratio 0.86 Amylase (25-115) U/L Lipase (73-393) U/L Urine Color (YELLOW) Urine Appearance (CLEAR) Urine pH (5.0-9.0) Ur Specific [place] (1.005-1.030) Urine Protein (NEGATIVE) Urine Glucose (UA) (NEGATIVE) Urine Ketones (NEGATIVE) Urine Occult Blood (NEGATIVE) Urine Nitrite (NEGATIVE) Urine Bilirubin (NEGATIVE) Urine Urobilinogen (0.2-1.0) mg/dL Ur Leukocyte Esterase (NEGATIVE) Urine Opiates Screen (NEGATIVE) Ur Oxycodone Screen (NEGATIVE) Urine Methadone Screen (NEGATIVE) Ur Barbiturates Screen (NEGATIVE) U Tricyclic Antidepress (NEGATIVE) Ur Phencyclidine Scrn (NEGATIVE) Ur Amphetamine Screen (NEGATIVE) U Methamphetamines Scrn (NEGATIVE) Urine MDMA Screen (NEGATIVE) U Benzodiazepines Scrn (NEGATIVE) Urine Cocaine Screen (NEGATIVE) U Marijuana (THC) Screen (NEGATIVE) Ethyl Alcohol < 3 (0) mg/dL 11/28/20 11/28/20 11/28/20 Range/Units 03:25 03:25 03:53 WBC (5.0-10.0) 10^3/uL RBC (4.6-6.2) 10^6/uL Hgb (14.0-18.0) g/dL Hct (40.0-54.0) % MCV (80-100) fL MCH (27.0-34.0) pg MCHC (33.0-35.0) g/dL Plt Count (150-450) 10^3/uL Neut % (Auto) (42.2-75.2) % Lymph % (Auto) (20.5-50.1) % [place] % (Auto) (2-8) % Eos % (Auto) (1.0-3.0) % Baso % (Auto) (0.0-1.0) % Add Manual Diff Neutrophils % (Manual) (42-75) % Lymphocytes % (Manual) (20-50) % Monocytes % (Manual) (2-8) % Eosinophils % (Manual) (1-3) % D-Dimer, Quantitative (0-400) ng/mL Sodium (136-145) mmol/L Potassium (3.5-5.1) mmol/L Chloride (98-107) mmol/L Carbon Dioxide (21-32) mmol/L Anion Gap (7-13) mEq/L BUN (7-18) mg/dL Creatinine (0.70-1.30) mg/dL Est Cr Clr Drug Dosing Estimated GFR (MDRD) BUN/Creatinine Ratio (No establ ref range) Glucose (74-99) mg/dL Calcium (8.5-10.1) mg/dL Magnesium (1.8-2.4) mg/dL Total Bilirubin (0.2-1.0) mg/dL AST (15-37) U/L ALT (16-63) U/L Alkaline Phosphatase (46-116) U/L Troponin I (0.000-0.056) ng/mL C-Reactive Protein (0.0-0.9) mg/dL B-Natriuretic Peptide 192 H (0-100) pg/ml Total Protein (6.4-8.2) g/dL Albumin (3.4-5.0) g/dL Globulin Albumin/Globulin Ratio Amylase 39 (25-115) U/L Lipase 112 (73-393) U/L Urine Color Yellow (YELLOW) Urine Appearance Clear (CLEAR) Urine pH 6.0 (5.0-9.0) Ur Specific [place] 1.020 (1.005-1.030) Urine Protein Negative (NEGATIVE) Urine Glucose (UA) Negative (NEGATIVE) Urine Ketones Negative (NEGATIVE) Urine Occult Blood Negative (NEGATIVE) Urine Nitrite Negative (NEGATIVE) Urine Bilirubin Negative (NEGATIVE) Urine Urobilinogen 2.0 H (0.2-1.0) mg/dL Ur Leukocyte Esterase Negative (NEGATIVE) Urine Opiates Screen (NEGATIVE) Ur Oxycodone Screen (NEGATIVE) Urine Methadone Screen (NEGATIVE) Ur Barbiturates Screen (NEGATIVE) U Tricyclic Antidepress (NEGATIVE) Ur Phencyclidine Scrn (NEGATIVE) Ur Amphetamine Screen (NEGATIVE) U Methamphetamines Scrn (NEGATIVE) Urine MDMA Screen (NEGATIVE) U Benzodiazepines Scrn (NEGATIVE) Urine Cocaine Screen (NEGATIVE) U Marijuana (THC) Screen (NEGATIVE) Ethyl Alcohol (0) mg/dL 11/28/20 11/28/20 Range/Units 03:53 07:27 WBC (5.0-10.0) 10^3/uL RBC (4.6-6.2) 10^6/uL Hgb (14.0-18.0) g/dL Hct (40.0-54.0) % MCV (80-100) fL MCH (27.0-34.0) pg MCHC (33.0-35.0) g/dL Plt Count (150-450) 10^3/uL Neut % (Auto) (42.2-75.2) % Lymph % (Auto) (20.5-50.1) % [place] % (Auto) (2-8) % Eos % (Auto) (1.0-3.0) % Baso % (Auto) (0.0-1.0) % Add Manual Diff Neutrophils % (Manual) (42-75) % Lymphocytes % (Manual) (20-50) % Monocytes % (Manual) (2-8) % Eosinophils % (Manual) (1-3) % D-Dimer, Quantitative (0-400) ng/mL Sodium (136-145) mmol/L Potassium (3.5-5.1) mmol/L Chloride (98-107) mmol/L Carbon Dioxide (21-32) mmol/L Anion Gap (7-13) mEq/L BUN (7-18) mg/dL Creatinine (0.70-1.30) mg/dL Est Cr Clr Drug Dosing Estimated GFR (MDRD) BUN/Creatinine Ratio (No establ ref range) Glucose (74-99) mg/dL Calcium (8.5-10.1) mg/dL Magnesium (1.8-2.4) mg/dL Total Bilirubin (0.2-1.0) mg/dL AST (15-37) U/L ALT (16-63) U/L Alkaline Phosphatase (46-116) U/L Troponin I < 0.017 (0.000-0.056) ng/mL C-Reactive Protein (0.0-0.9) mg/dL B-Natriuretic Peptide (0-100) pg/ml Total Protein (6.4-8.2) g/dL Albumin (3.4-5.0) g/dL Globulin Albumin/Globulin Ratio Amylase (25-115) U/L Lipase (73-393) U/L Urine Color (YELLOW) Urine Appearance (CLEAR) Urine pH (5.0-9.0) Ur Specific [place] (1.005-1.030) Urine Protein (NEGATIVE) Urine Glucose (UA) (NEGATIVE) Urine Ketones (NEGATIVE) Urine Occult Blood (NEGATIVE) Urine Nitrite (NEGATIVE) Urine Bilirubin (NEGATIVE) Urine Urobilinogen (0.2-1.0) mg/dL Ur Leukocyte Esterase (NEGATIVE) Urine Opiates Screen Negative (NEGATIVE) Ur Oxycodone Screen Negative (NEGATIVE) Urine Methadone Screen Negative (NEGATIVE) Ur Barbiturates Screen Negative (NEGATIVE) U Tricyclic Antidepress Negative (NEGATIVE) Ur Phencyclidine Scrn Negative (NEGATIVE) Ur Amphetamine Screen Negative (NEGATIVE) U Methamphetamines Scrn Positive H (NEGATIVE) Urine MDMA Screen Negative (NEGATIVE) U Benzodiazepines Scrn Negative (NEGATIVE) Urine Cocaine Screen Negative (NEGATIVE) U Marijuana (THC) Screen Positive H (NEGATIVE) Ethyl Alcohol (0) mg/dL Meds: Medications Discontinued Medications Generic Name Dose Route Start Last Admin Trade Name Freq PRN Reason Stop Dose Admin Sodium Chloride 1,000 mls @ 999 mls/hr 11/28/20 03:21 11/28/20 03:30 Normal Saline IV 11/28/20 04:21 999 mls/hr .BOLUS ONE Administration Iopamidol 100 ml 11/28/20 05:00 [id number] (76%) IVPUSH 11/28/20 05:01 ONETIME ONE Lorazepam 0.5 mg 11/28/20 04:35 11/28/20 04:40 Ativan IVPUSH 11/28/20 04:36 0.5 mg ONETIME ONE Administration
[2020-11-28 03:20] VITALS: BP 101/64; PULSE 78
[2020-11-28] MEDS ORDERED: Sodium Chloride 0.9% 1,000 ML IV ONE (03:21)
[2020-11-28 04:16] LABS: ANION GAP 10.4 mEq/L (7-13); CHLORIDE,CL 105 mmol/L (98-107); SODIUM,NA 140 mmol/L (136-145)
[2020-11-28] MEDS ORDERED: LORazepam 2 MG/ML SDV IVPUSH ONE (04:35)
[2020-11-28] MEDS ORDERED: Iopamidol 755 Mg/ML 100 ML Bottle IVPUSH ONE (05:00)
--- NOTE | 2020-11-28 06:16 | CR ---
PROCEDURE INFORMATION: Exam: XR Chest Exam date and time: 11/28/2020 5:45 AM Age: 50 years old Clinical indication: Shortness of breath TECHNIQUE: Imaging protocol: XR of the chest Views: 1 view. COMPARISON: CT Chest Abdomen Pelvis wo Cont 08/27/2020 5:09 AM FINDINGS: Lungs: There is minor bibasilar atelectasis. The lungs are otherwise clear. Pleural spaces: Unremarkable. No pleural effusion. No pneumothorax. Heart/Mediastinum: Unremarkable. No cardiomegaly. Bones/joints: Median sternotomy wires are again present. Degenerative changes again involve the spine. IMPRESSION: No evidence for acute pulmonary disease.
== END 2020-11-28 08:30 | disposition home or self-care (01) ==
LOC: DL.ED 03:13
DX: R07.9 Chest pain, unspecified (principal); F15.90 Other stimulant use, unspecified, uncomplicated; I11.0 Hypertensive heart disease with heart failure; I50.9 Heart failure, unspecified; I25.2 Old myocardial infarction; Z88.5 Allergy status to narcotic agent; Z88.6 Allergy status to analgesic agent; Z88.8 Allergy status to other drugs, medicaments and biological substances; Z79.899 Other long term (current) drug therapy; Z79.82 Long term (current) use of aspirin
CPT/HCPCS: 36415; 71045; 80053; 80305; 80307; 81003; 82150; 83690; 83735; 83880; 84484; 85025; 85379; 86140; 93005; 93010; 96374; 99284; 99285; J2060; J7030

== ENCOUNTER 2021-02-27 20:44 | Emergency (ER) | payer MEDICAID ==
[2021-02-27 21:01] VITALS: BP 118/85; PULSE 88
--- NOTE | 2021-02-27 21:01 | EDM.PDOC ---
ED HPI GENERAL MEDICAL PROBLEM - General Stated Complaint: GETS DIZZY AND BLACKSOUT/HAS HEART CONDITION Time Seen by Provider: 02/27/21 21:00 Source of Information: Reports: Patient, Old Records, RN, RN Notes Reviewed History Limitations: Reports: No Limitations - History of Present Illness INITIAL COMMENTS - FREE TEXT/NARRATIVE: Le is a 50 y/o male who presents to the ED via personal vehicle with com plaints of shortness of breath, weakness, and dizziness. He states he has been experiencing these symptoms for the past four days, and they have progressively worsened in severity. Additionally, he has noted a progressive cough with coughing fits that have caused him to "pass out." He denies fever, shaking chills, sore throat, chest pain/pressure, palpitations, abdominal pain, diarrhea/constipation, dysuria, or hematuria. The patient reports a cardiac history significant for valve replacement and CABG. He states he takes his medication daily, but is unable to state what medication or what they have been prescribed for. The patient does attest to smoking 1/4 pack of cigarettes per day and frequent cannabis and methamphetamine use; he reports his last meth use was last night. He denies alcohol use. Bilateral Lower Leg Pain Score (Numeric/FACES): 7 - Related Data Allergies Allergy/AdvReac Type Severity Reaction Status Date / Time codeine Allergy Rash Verified 02/27/21 21:01 acetaminophen [From NyQuil] AdvReac Agitation Verified 02/27/21 21:01 dextromethorphan HBr AdvReac Agitation Verified 02/27/21 21:01 [From NyQuil] doxylamine succinate AdvReac Agitation Verified 02/27/21 21:01 [From NyQuil] pseudoephedrine HCl AdvReac Agitation Verified 02/27/21 21:01 [From NyQuil] Home Meds: Home Meds Aspirin [Aspirin EC] 81 mg PO DAILY 08/27/20 [History] Cyanocobalamin (Vitamin B-12) [Vitamin B-12] 250 mcg PO DAILY 08/27/20 [History] Folic Acid 0.8 mg PO DAILY 08/27/20 [History] Furosemide [Lasix] 40 mg PO DAILY 08/27/20 [History] Gabapentin [Neurontin] 600 mg PO TID 08/27/20 [History] Ketoconazole [Nizoral 2% Crm] 1 applic TOP BID PRN 08/27/20 [History] QUEtiapine [SEROquel] 100 mg PO DAILY 08/27/20 [History] Tamsulosin HCl [Flomax] 0.4 mg PO DAILY 08/27/20 [History] Thiamine HCl [Vitamin B-1] 100 mg PO DAILY 08/27/20 [History] atorvaSTATin [Lipitor] 10 mg PO DAILY 08/27/20 [History] carvediloL [Carvedilol] 3.125 mg PO DAILY 08/27/20 [History] lisinopriL [Lisinopril] 5 mg PO DAILY 08/27/20 [History] Doxycycline Monohydrate 100 mg PO BID #14 cap 08/28/20 [Rx] traMADol [Ultram] 50 mg PO Q6H PRN 5 Days #20 tablet 08/28/20 [Rx] Past Medical History Cardiovascular History: Reports: Cardiomyopathy, Heart Failure, Heart Murmur, Heart Valve Replacement, Hypertension, [place] Musculoskeletal History: Reports: Other (See Below) Other Musculoskeletal History: ankle fx hx Psychiatric History: Reports: Addiction, Depression - Infectious Disease History Infectious Disease History: Reports: Novel Coronavirus Other Infectious Disease History: COVID April 2020 - Past Surgical History HEENT Surgical History: Reports: Oral Surgery Cardiovascular Surgical History: Reports: Valve Replacement Social & Family History - Caffeine Use Caffeine Use: Reports: None ED ROS GENERAL - Review of Systems Review Of Systems: Comprehensive ROS is negative, except as noted in HPI. ED EXAM, GENERAL - Physical Exam Exam: See Below Exam Limited By: No Limitations General Appearance: Alert, No Apparent Distress Eye Exam: Bilateral Eye: EOMI, Normal Inspection, PERRL (4mm) Ears: Normal External Exam, Normal Canal, Hearing Grossly Normal. No: Normal TMs Ear Exam: Bilateral Ear: Auricle Normal, Canal Normal, TM Dull Nose: Normal Inspection, Normal Mucosa, No Blood Throat/Mouth: Normal Voice, No Airway Compromise. No: Normal Oropharynx (Dry mucous membranes) Head: Atraumatic, Normocephalic Neck: Normal Inspection, Supple, Non-Tender, Full Range of Motion. No: Lymphadenopathy (L), Lymphadenopathy (R) Respiratory/Chest: No Respiratory Distress, Lungs Clear, Normal Breath Sounds, No Accessory Muscle Use, Chest Non-Tender Cardiovascular: Normal Peripheral Pulses, Regular Rate, Rhythm, No Rub, JVD, Systolic Murmur (Holosystolic, 5/6 greatest over the pulmonic area; No radiation into carotids). No: No Edema Peripheral Pulses: 2+: Radial (L), Radial (R) GI/Abdominal: Normal Bowel Sounds, Soft, Non-Tender, No Distention, No Mass, Pelvis Stable (Male) Exam: Deferred Rectal (Males) Exam: Deferred Back Exam: Normal Inspection, Full Range of Motion Extremities: Normal Capillary Refill, Pedal Edema (+1 pitting, bilaterally), Leg Pain (To bilateral ankles, scattered varicosities appreciated to both ankles). No: Joint Swelling Neurological: Alert, Oriented, CN II-XII Intact, Normal Cognition, Normal Gait, No Motor/Sensory Deficits Psychiatric: Normal Affect, Normal Mood Skin Exam: Warm, Dry, Normal Color, No Rash, Wound/Incision (Split toenail to right middle toe). No: Ecchymosis, Erythema, Increased Warmth, Jaundice, Mottled, Pallor, Petechiae #1 Interpretation EKG Date: 02/27/21 Time: 20:55 Rhythm: NSR Rate (Beats/Min): 83 [place]: RAD-Right [place] Deviation P-Wave: Present QRS: RBBB (with LPFB) ST-T: Depressed (Mild in V3 and V4) QT: Prolonged (513) LA/PQ Interval: 0.165 Comparison: Change From Previous EKG (New Q-wave in V1 and V2; LPFB) EKG Interpretation Comments: NSR; RAD; RBB and LPFB; q-wave in V1 and V2. Course - Vital Signs Last Recorded V/S: Last Vital Signs Temp 97 F 02/27/21 20:54 Pulse 88 02/27/21 20:54 Resp 16 02/27/21 20:54 BP 118/85 02/27/21 20:54 Pulse Ox 100 02/27/21 20:54 - Orders/Labs/Meds Labs: Laboratory Tests 02/27/21 02/27/21 02/27/21 Range/Units 20:55 20:55 20:55 WBC 6.2 (5.0-10.0) 10^3/uL RBC 5.55 (4.6-6.2) 10^6/uL Hgb 15.9 D (14.0-18.0) g/dL Hct 49.3 (40.0-54.0) % MCV 88.8 (80-100) fL MCH 28.6 (27.0-34.0) pg MCHC 32.3 L (33.0-35.0) g/dL Plt Count 172 (150-450) 10^3/uL Neut % (Auto) 73.6 (42.2-75.2) % Lymph % (Auto) 14.8 L (20.5-50.1) % [place] % (Auto) 8.3 H (2-8) % Eos % (Auto) 2.2 (1.0-3.0) % Baso % (Auto) 1.1 H (0.0-1.0) % PT 14.4 H (9.0-12.0) SEC INR 1.4 H (0.9-1.2) APTT 30.5 (22.0-34.0) SEC Sodium 139 (136-145) mmol/L Potassium 3.7 (3.5-5.1) mmol/L Chloride 102 (98-107) mmol/L Carbon Dioxide 29 (21-32) mmol/L Anion Gap 11.7 (7-13) mEq/L BUN 24 H (7-18) mg/dL Creatinine 1.38 H (0.70-1.30) mg/dL Est Cr Clr Drug Dosing 64.65 mL/min Estimated GFR (MDRD) 54 BUN/Creatinine Ratio 17.4 (No establ ref range) Glucose 124 H (70-99) mg/dL Lactic Acid (0.4-2.0) mmol/L Calcium 8.4 L (8.5-10.1) mg/dL Magnesium 2.1 (1.8-2.4) mg/dL Total Bilirubin 2.5 H (0.2-1.0) mg/dL AST 34 (15-37) U/L ALT 30 (16-63) U/L Alkaline Phosphatase 133 H (46-116) U/L Troponin I < 0.017 (0.000-0.056) ng/mL C-Reactive Protein 0.5 (0.0-0.9) mg/dL B-Natriuretic Peptide 257 H (0-100) pg/ml Total Protein 7.0 (6.4-8.2) g/dL Albumin 3.7 (3.4-5.0) g/dL Globulin 3.3 Albumin/Globulin Ratio 1.1 Urine Color (YELLOW) Urine Appearance (CLEAR) Urine pH (5.0-9.0) Ur Specific [place] (1.005-1.030) Urine Protein (NEGATIVE) Urine Glucose (UA) (NEGATIVE) Urine Ketones (NEGATIVE) Urine Occult Blood (NEGATIVE) Urine Nitrite (NEGATIVE) Urine Bilirubin (NEGATIVE) Urine Urobilinogen (0.2-1.0) mg/dL Ur Leukocyte Esterase (NEGATIVE) Urine Opiates Screen (NEGATIVE) Ur Oxycodone Screen (NEGATIVE) Urine Methadone Screen (NEGATIVE) Ur Barbiturates Screen (NEGATIVE) U Tricyclic Antidepress (NEGATIVE) Ur Phencyclidine Scrn (NEGATIVE) Ur Amphetamine Screen (NEGATIVE) U Methamphetamines Scrn (NEGATIVE) Urine MDMA Screen (NEGATIVE) U Benzodiazepines Scrn (NEGATIVE) Urine Cocaine Screen (NEGATIVE) U Marijuana (THC) Screen (NEGATIVE) Ethyl Alcohol < 3 (0) mg/dL Influenza Type A RNA (NEGATIVE) Influenza Type B RNA (NEGATIVE) SARS-CoV-2 RNA (MILADY) (NEGATIVE) 02/27/21 02/27/21 02/27/21 Range/Units 20:55 21:25 21:25 WBC (5.0-10.0) 10^3/uL RBC (4.6-6.2) 10^6/uL Hgb (14.0-18.0) g/dL Hct (40.0-54.0) % MCV (80-100) fL MCH (27.0-34.0) pg MCHC (33.0-35.0) g/dL Plt Count (150-450) 10^3/uL Neut % (Auto) (42.2-75.2) % Lymph % (Auto) (20.5-50.1) % [place] % (Auto) (2-8) % Eos % (Auto) (1.0-3.0) % Baso % (Auto) (0.0-1.0) % PT (9.0-12.0) SEC INR (0.9-1.2) APTT (22.0-34.0) SEC Sodium (136-145) mmol/L Potassium (3.5-5.1) mmol/L Chloride (98-107) mmol/L Carbon Dioxide (21-32) mmol/L Anion Gap (7-13) mEq/L BUN (7-18) mg/dL Creatinine (0.70-1.30) mg/dL Est Cr Clr Drug Dosing mL/min Estimated GFR (MDRD) BUN/Creatinine Ratio (No establ ref range) Glucose (70-99) mg/dL Lactic Acid 0.6 (0.4-2.0) mmol/L Calcium (8.5-10.1) mg/dL Magnesium (1.8-2.4) mg/dL Total Bilirubin (0.2-1.0) mg/dL AST (15-37) U/L ALT (16-63) U/L Alkaline Phosphatase (46-116) U/L Troponin I (0.000-0.056) ng/mL C-Reactive Protein (0.0-0.9) mg/dL B-Natriuretic Peptide (0-100) pg/ml Total Protein (6.4-8.2) g/dL Albumin (3.4-5.0) g/dL Globulin Albumin/Globulin Ratio Urine Color Yellow (YELLOW) Urine Appearance Clear (CLEAR) Urine pH 7.0 (5.0-9.0) Ur Specific [place] 1.020 (1.005-1.030) Urine Protein Negative (NEGATIVE) Urine Glucose (UA) Negative (NEGATIVE) Urine Ketones Negative (NEGATIVE) Urine Occult Blood Negative (NEGATIVE) Urine Nitrite Negative (NEGATIVE) Urine Bilirubin Negative (NEGATIVE) Urine Urobilinogen 0.2 (0.2-1.0) mg/dL Ur Leukocyte Esterase Negative (NEGATIVE) Urine Opiates Screen Negative (NEGATIVE) Ur Oxycodone Screen Negative (NEGATIVE) Urine Methadone Screen Negative (NEGATIVE) Ur Barbiturates Screen Negative (NEGATIVE) U Tricyclic Antidepress Negative (NEGATIVE) Ur Phencyclidine Scrn Negative (NEGATIVE) Ur Amphetamine Screen Negative (NEGATIVE) U Methamphetamines Scrn Positive H (NEGATIVE) Urine MDMA Screen Negative (NEGATIVE) U Benzodiazepines Scrn Negative (NEGATIVE) Urine Cocaine Screen Negative (NEGATIVE) U Marijuana (THC) Screen Positive H (NEGATIVE) Ethyl Alcohol (0) mg/dL Influenza Type A RNA (NEGATIVE) Influenza Type B RNA (NEGATIVE) SARS-CoV-2 RNA ([place]ILADY) (NEGATIVE) 02/27/21 Range/Units 21:30 WBC (5.0-10.0) 10^3/uL RBC (4.6-6.2) 10^6/uL Hgb (14.0-18.0) g/dL Hct (40.0-54.0) % MCV (80-100) fL MCH (27.0-34.0) pg MCHC (33.0-35.0) g/dL Plt Count (150-450) 10^3/uL Neut % (Auto) (42.2-75.2) % Lymph % (Auto) (20.5-50.1) % [place] % (Auto) (2-8) % Eos % (Auto) (1.0-3.0) % Baso % (Auto) (0.0-1.0) % PT (9.0-12.0) SEC INR (0.9-1.2) APTT (22.0-34.0) SEC Sodium (136-145) mmol/L Potassium (3.5-5.1) mmol/L Chloride (98-107) mmol/L Carbon Dioxide (21-32) mmol/L Anion Gap (7-13) mEq/L BUN (7-18) mg/dL Creatinine (0.70-1.30) mg/dL Est Cr Clr Drug Dosing mL/min Estimated GFR (MDRD) BUN/Creatinine Ratio (No establ ref range) Glucose (70-99) mg/dL Lactic Acid (0.4-2.0) mmol/L Calcium (8.5-10.1) mg/dL Magnesium (1.8-2.4) mg/dL Total Bilirubin (0.2-1.0) mg/dL AST (15-37) U/L ALT (16-63) U/L Alkaline Phosphatase (46-116) U/L Troponin I (0.000-0.056) ng/mL C-Reactive Protein (0.0-0.9) mg/dL B-Natriuretic Peptide (0-100) pg/ml Total Protein (6.4-8.2) g/dL Albumin (3.4-5.0) g/dL Globulin Albumin/Globulin Ratio Urine Color (YELLOW) Urine Appearance (CLEAR) Urine pH (5.0-9.0) Ur Specific [place] (1.005-1.030) Urine Protein (NEGATIVE) Urine Glucose (UA) (NEGATIVE) Urine Ketones (NEGATIVE) Urine Occult Blood (NEGATIVE) Urine Nitrite (NEGATIVE) Urine Bilirubin (NEGATIVE) Urine Urobilinogen (0.2-1.0) mg/dL Ur Leukocyte Esterase (NEGATIVE) Urine Opiates Screen (NEGATIVE) Ur Oxycodone Screen (NEGATIVE) Urine Methadone Screen (NEGATIVE) Ur Barbiturates Screen (NEGATIVE) U Tricyclic Antidepress (NEGATIVE) Ur Phencyclidine Scrn (NEGATIVE) Ur Amphetamine Screen (NEGATIVE) U Methamphetamines Scrn (NEGATIVE) Urine MDMA Screen (NEGATIVE) U Benzodiazepines Scrn (NEGATIVE) Urine Cocaine Screen (NEGATIVE) U Marijuana (THC) Screen (NEGATIVE) Ethyl Alcohol (0) mg/dL Influenza Type A RNA Negative (NEGATIVE) Influenza Type B RNA Negative (NEGATIVE) SARS-CoV-2 RNA ([place]ILAD[place]) Negative (NEGATIVE) Meds: Medications Discontinued Medications Generic Name Dose Route Start Last Admin Trade Name Freq PRN Reason Stop Dose Admin Bacitracin 1 dose 02/27/21 22:32 02/27/21 23:10 Bacitracin Oint 1 Gm U/D Packet TOP 02/27/21 22:33 1 dose ONETIME ONE Administration Furosemide 20 mg 02/27/21 22:33 02/27/21 23:09 Furosemide 20 Mg Tab PO 02/27/21 22:34 20 mg ONETIME ONE Administration Lidocaine HCl 30 ml 02/27/21 22:32 Lidocaine 1% 30 Ml Sdv INJECT 02/27/21 22:33 ONETIME ONE - Radiology Interpretation Free Text/Narrative:: [facility] Final Radiology Report Call: [phone] assistance Online chat: [email or web address] Name: LE FOFANA Age: 50Years M Date: 02/27/2021 SSN: -- : [id number] Study: CR CHEST 1V FRONTAL Requesting Physician: Kelly Landeros Images: 1 Addl Studies: Provided Clinical History: chest pain Contrast: Contrast Medium: Contrast Amount: Contrast Method: CONFIDENTIALITY STATEMENT This report is intended only for use by the referring physician, and only in accordance with law. If you received this in error, call [phone]. Page 1 of 1 PROCEDURE INFORMATION: Exam: XR Chest Exam date and time: 02/27/2021 9:07 PM Age: 50 years old Clinical indication: Pain; Left-sided; Additional info: Chest pain TECHNIQUE: Imaging protocol: XR of the chest. Views: 1 view. COMPARISON: CR Chest 1V Frontal 11/28/2020 5:45 AM FINDINGS: Lungs: The lungs are symmetric, well expanded and clear. Pleural spaces: There are no pleural effusions. There is no pneumothorax. Heart/Mediastinum: The heart is enlarged but stable. The patient is status post CABG. The mediastinal and hilar contours are normal. Bones/joints: No acute osseous pathology is identified. IMPRESSION: Stable cardiomegaly. No acute CHF or pneumonia identified. Thank you for allowing us to participate in the care of your patient. Dictated and Authenticated by: Anna Gonzales MD 02/27/2021 9:31 PM Central Time ([place] & [place]) - Re-Assessments/Exams Free Text/Narrative Re-Assessment/Exam: 02/28/21 EKG reveals NSR with RBBB and LPFB; RAD. Troponin WNL. Given length of symptoms in the presence of normal troponin and unchanged EKG, patient has ruled out myocardial ischemia as cause of SOB. BNP 257. CXR unremarkable for acute processes, no evidence of infiltrate, edema, or effusion. CBC unremarkable; no evidence of anemia or infection. Kidney function mildly reduced with Creatinine 1.3, BUN 24, and GFR 54. Liver enzymes normal, however Total Bili is 2.5. UA unremarkable. ETOH negative. Tox screen positive for m ethamphetamines and THC. Split toenail is clean and does not appear infected; patient requesting removal of broken piece. After advertising writer gathered supplies, patient now states he will "...soak it and take care of it at home." Findings of examination, lab work, and imaging reviewed with patient. Given exam and shortness of breath, will treat mild fluid overload with extra dose of Lasix. Patient instructed to follow up with primary care provider early next week; he states he is due to see his assembly inspector in March. Patient instructed to refrain from recreational drug use as he smokes three different substances; reviewed contribution to SOB. Red flag signs and symptoms which would warrant reevaluation reviewed. Patient verbalized understanding and agreement with the plan of care. Departure - Departure Time of Disposition: 22:51 Disposition: Home, Self-Care 01 Condition: Good Clinical Impression: Methamphetamine use, Shortness of breath, Cannabis use, uncomplicated Fluid overload Qualifiers: Hypervolemia type: other Qualified Code(s): E87.79 - Other fluid overload Forms: ED Department Discharge Additional Instructions: 1.) Follow up with primary care provider early next week regarding today's appointment. 2.) Continue to follow with your assembly inspector. 3.) Refrain from using recreational drugs, including methamphetamines, cannabis, and tobacco. 4.) Return to the emergency department with any persistent shortness of breath, chest pain/pressure, fever, or worsening of symptoms. Sepsis Event Note (ED) - Focused Exam Vital Signs: Vital Signs Temp Pulse Resp BP Pulse Ox 02/27/21 20:54 97 F 88 16 118/85 100
[2021-02-27 21:24] LABS: PTT,PARTIAL THROMBOPLSTIN TIME 30.5 SEC (22.0-34.0)
[2021-02-27 21:32] LABS: ANION GAP 11.7 mEq/L (7-13); CHLORIDE,CL 102 mmol/L (98-107); SODIUM,NA 139 mmol/L (136-145)
--- NOTE | 2021-02-27 21:32 | CR ---
PROCEDURE INFORMATION: Exam: XR Chest Exam date and time: 02/27/2021 9:07 PM Age: 50 years old Clinical indication: Pain; Left-sided; Additional info: Chest pain TECHNIQUE: Imaging protocol: XR of the chest. Views: 1 view. COMPARISON: CR Chest 1V Frontal 11/28/2020 5:45 AM FINDINGS: Lungs: The lungs are symmetric, well expanded and clear. Pleural spaces: There are no pleural effusions. There is no pneumothorax. Heart/Mediastinum: The heart is enlarged but stable. The patient is status post CABG. The mediastinal and hilar contours are normal. Bones/joints: No acute osseous pathology is identified. IMPRESSION: Stable cardiomegaly. No acute CHF or pneumonia identified.
[2021-02-27 22:23] LABS: CORONAVIRUS COVID-19 NAA NEGATIVE (NEGATIVE)
[2021-02-27] MEDS ORDERED: Lidocaine 1% 30 ML SDV INJECT ONE (22:32)
[2021-02-27] MEDS ORDERED: Bacitracin Oint 1 GM U/D Packet TOP ONE (22:32)
[2021-02-27] MEDS ORDERED: Furosemide 20 MG Tab PO ONE (22:33)
== END 2021-02-27 23:10 | disposition home or self-care (01) ==
LOC: DL.ED 20:44
DX: E87.79 Other fluid overload (principal); F15.90 Other stimulant use, unspecified, uncomplicated; F12.90 Cannabis use, unspecified, uncomplicated; I11.0 Hypertensive heart disease with heart failure; I50.9 Heart failure, unspecified; I25.2 Old myocardial infarction; Z20.822 Contact with and (suspected) exposure to COVID-19; Z88.5 Allergy status to narcotic agent; Z88.6 Allergy status to analgesic agent; Z88.8 Allergy status to other drugs, medicaments and biological substances; Z79.82 Long term (current) use of aspirin; Z79.899 Other long term (current) drug therapy
CPT/HCPCS: 0240U; 36415; 71045; 80053; 80305; 80307; 81003; 83605; 83735; 83880; 84484; 85025; 85610; 85730; 86140; 93005; 99285; A9270

== ENCOUNTER 2021-03-16 11:18 | Emergency (ER) | payer MEDICAID ==
[2021-03-16 11:00] VITALS: BP 107/80; PULSE 99
--- NOTE | 2021-03-16 11:21 | EDM.PDOC ---
ED HPI GENERAL MEDICAL PROBLEM - General Chief Complaint: General Stated Complaint: IN BY AMBULANCE Time Seen by Provider: 03/16/21 11:18 Source of Information: Reports: Patient, EMS, EMS Notes Reviewed, RN, RN Notes Reviewed History Limitations: Reports: No Limitations - History of Present Illness INITIAL COMMENTS - FREE TEXT/NARRATIVE: Patient is a 50-year-old male who presents to ER per [facility] with complaint of fall. Patient states he was walking down a bike trail and began coughing, blacked out, and fell down. Patient admits to chest pains and shortness of breath for "long time". Denies any recent illness. States he had Covid last fall. No Covid vaccination. Patient states he is homeless at this time. Admits to marijuana and methamphetamine use. Patient states he last used yesterday morning. Denies any alcohol use. Denies any nausea, vomiting, diarrhea. Previous chart from previous visit to ER states patient admitted to having CABG and valve replacement. Onset: Today, Sudden Generalized Pain Score (Numeric/FACES): 8 - Related Data Allergies Allergy/AdvReac Type Severity Reaction Status Date / Time codeine Allergy Rash Verified 03/16/21 10:59 acetaminophen [From NyQuil] AdvReac Agitation Verified 03/16/21 10:59 dextromethorphan HBr AdvReac Agitation Verified 03/16/21 10:59 [From NyQuil] doxylamine succinate AdvReac Agitation Verified 03/16/21 10:59 [From NyQuil] pseudoephedrine HCl AdvReac Agitation Verified 03/16/21 10:59 [From NyQuil] Home Meds: Home Meds Aspirin [Aspirin EC] 81 mg PO DAILY 08/27/20 [History] Cyanocobalamin (Vitamin B-12) [Vitamin B-12] 250 mcg PO DAILY 08/27/20 [History] Folic Acid 0.8 mg PO DAILY 08/27/20 [History] Furosemide [Lasix] 40 mg PO DAILY 08/27/20 [History] Gabapentin [Neurontin] 600 mg PO TID 08/27/20 [History] Ketoconazole [Nizoral 2% Crm] 1 applic TOP BID PRN 08/27/20 [History] QUEtiapine [SEROquel] 100 mg PO DAILY 08/27/20 [History] Tamsulosin HCl [Flomax] 0.4 mg PO DAILY 08/27/20 [History] Thiamine HCl [Vitamin B-1] 100 mg PO DAILY 08/27/20 [History] atorvaSTATin [Lipitor] 10 mg PO DAILY 08/27/20 [History] carvediloL [Carvedilol] 3.125 mg PO DAILY 08/27/20 [History] lisinopriL [Lisinopril] 5 mg PO DAILY 08/27/20 [History] Doxycycline Monohydrate 100 mg PO BID #14 cap 08/28/20 [Rx] traMADol [Ultram] 50 mg PO Q6H PRN 5 Days #20 tablet 08/28/20 [Rx] Past Medical History Cardiovascular History: Reports: Cardiomyopathy, Heart Failure, Heart Murmur, Heart Valve Replacement, Hypertension, VA Musculoskeletal History: Reports: Other (See Below) Other Musculoskeletal History: ankle fx hx Psychiatric History: Reports: Addiction, Depression - Infectious Disease History Infectious Disease History: Reports: Novel Coronavirus Other Infectious Disease History: COVID April 2020 - Past Surgical History HEENT Surgical History: Reports: Oral Surgery Cardiovascular Surgical History: Reports: Valve Replacement Social & Family History - Family History Family Medical History: No Pertinent Family History - Tobacco Use Tobacco Use Status *Q: Unknown Ever Used Tobacco - Caffeine Use Caffeine Use: Reports: Coffee - Recreational Drug Use Recreational Drug Use: Yes ED ROS GENERAL - Review of Systems Review Of Systems: Comprehensive ROS is negative, except as noted in HPI. ED EXAM, GENERAL - Physical Exam Exam: See Below Exam Limited By: Intoxication (Methamphetamine) Eye Exam: Bilateral Eye: Conjunctival Injection, EOMI (Extraocular movements intact, yet painful for patient), Periorbital Changes (Swelling, bleeding, ecchymosis, abrasion) Ears: Normal External Exam, Hearing Grossly Normal Nose: Other (Dried blood throughout both nares) Throat/Mouth: Normal Voice, No Airway Compromise, Other (Dried blood throughout the mouth) Head: Facial Swelling, Facial Tenderness, Sinus Tenderness Neck: Normal Inspection, Supple, Tender Lateral Respiratory/Chest: No Respiratory Distress, Lungs Clear, Normal Breath Sounds, No Accessory Muscle Use, Chest Non-Tender Cardiovascular: Normal Peripheral Pulses, Regular Rate, Rhythm, No Edema, No Gallop, No JVD, No Rub, Systolic Murmur Peripheral Pulses: 2+: Radial (L), Radial (R) GI/Abdominal: Normal Bowel Sounds, Soft, Non-Tender (Male) Exam: Deferred Rectal (Males) Exam: Deferred Back Exam: Normal Inspection, Full Range of Motion, NT Extremities: Normal Inspection, Normal Range of Motion, Non-Tender, Normal Capillary Refill, No Pedal Edema Neurological: Alert, Oriented, Normal Cognition, No Motor/Sensory Deficits Psychiatric: Normal Affect, Normal Mood Skin Exam: Warm, Dry, Normal Color, No Rash, Ecchymosis (Orbital areas bilaterally) Lymphatic: No Adenopathy #1 Interpretation EKG Date: 03/16/21 Time: 11:07 Rhythm: NSR Rate (Beats/Min): 96 QRS: RBBB ST-T: Normal QT: Normal Comparison: No Change Course - Vital Signs Last Recorded V/S: Last Vital Signs Temp 99.1 F 03/16/21 10:55 Pulse 99 03/16/21 10:55 Resp 26 H 03/16/21 10:55 BP 107/80 03/16/21 10:55 Pulse Ox - Orders/Labs/Meds Orders: Active Orders 24 hr Category Date Time Status EKG Documentation Completion [RC] STAT Care 03/16/21 10:49 Active Sodium Chloride 0.9% [Normal Saline] 1,000 ml Med 03/16/21 13:00 Active IV CONTINUOUS Medication Orders Sodium Chloride (Normal Saline) 1,000 mls @ 200 mls/hr IV CONTINUOUS ONE Stop: 03/16/21 17:59 Last Admin: 03/16/21 13:24 Dose: 200 mls/hr Documented by: GRAHAM Labs: Laboratory Tests 03/16/21 03/16/21 03/16/21 Range/Units 10:40 10:59 10:59 WBC 8.4 (5.0-10.0) 10^3/uL RBC 5.18 (4.6-6.2) 10^6/uL Hgb 15.2 (14.0-18.0) g/dL Hct 46.0 (40.0-54.0) % MCV 88.8 (80-100) fL MCH 29.3 (27.0-34.0) pg MCHC 33.0 (33.0-35.0) g/dL Plt Count 140 L (150-450) 10^3/uL Neut % (Auto) 85.6 H (42.2-75.2) % Lymph % (Auto) 5.6 L (20.5-50.1) % [place] % (Auto) 6.5 (2-8) % Eos % (Auto) 1.6 (1.0-3.0) % Baso % (Auto) 0.7 (0.0-1.0) % Sodium 138 (136-145) mmol/L Potassium 4.2 (3.5-5.1) mmol/L Chloride 102 (98-107) mmol/L Carbon Dioxide 27 (21-32) mmol/L Anion Gap 13.2 H (7-13) mEq/L BUN 23 H (7-18) mg/dL Creatinine 1.39 H (0.70-1.30) mg/dL Est Cr Clr Drug Dosing 64.19 mL/min Estimated GFR (MDRD) 54 BUN/Creatinine Ratio 16.5 (No establ ref range) Glucose 91 (70-99) mg/dL Calcium 7.9 L (8.5-10.1) mg/dL Total Bilirubin 2.5 H (0.2-1.0) mg/dL AST 55 H (15-37) U/L ALT 31 (16-63) U/L Alkaline Phosphatase 152 H (46-116) U/L Troponin I High Sens 141 H* (<=76) pg/mL C-Reactive Protein 1.2 H (0.0-0.9) mg/dL B-Natriuretic Peptide 288 H (0-100) pg/ml Total Protein 6.3 L (6.4-8.2) g/dL Albumin 2.9 L (3.4-5.0) g/dL Globulin 3.4 Albumin/Globulin Ratio 0.85 Urine Color (YELLOW) Urine Appearance (CLEAR) Urine pH (5.0-9.0) Ur Specific [place] (1.005-1.030) Urine Protein (NEGATIVE) Urine Glucose (UA) (NEGATIVE) Urine Ketones (NEGATIVE) Urine Occult Blood (NEGATIVE) Urine Nitrite (NEGATIVE) Urine Bilirubin (NEGATIVE) Urine Urobilinogen (0.2-1.0) mg/dL Ur Leukocyte Esterase (NEGATIVE) Urine RBC /HPF Urine WBC (0-5/HPF) /HPF Ur Epithelial Cells (NOT SEEN) /HPF Urine Bacteria (0-FEW/HPF) /HPF Urine Mucus (NOT SEEN) /LPF Urine Opiates Screen (NEGATIVE) Ur Oxycodone Screen (NEGATIVE) Urine Methadone Screen (NEGATIVE) Ur Barbiturates Screen (NEGATIVE) U Tricyclic Antidepress (NEGATIVE) Ur Phencyclidine Scrn (NEGATIVE) Ur Amphetamine Screen (NEGATIVE) U Methamphetamines Scrn (NEGATIVE) Urine MDMA Screen (NEGATIVE) U Benzodiazepines Scrn (NEGATIVE) Urine Cocaine Screen (NEGATIVE) U Marijuana (THC) Screen (NEGATIVE) Ethyl Alcohol < 3 (0) mg/dL SARS-CoV-2 RNA (MILADY) Negative (NEGATIVE) 03/16/21 03/16/21 Range/Units 11:34 11:34 WBC (5.0-10.0) 10^3/uL RBC (4.6-6.2) 10^6/uL Hgb (14.0-18.0) g/dL Hct (40.0-54.0) % MCV (80-100) fL MCH (27.0-34.0) pg MCHC (33.0-35.0) g/dL Plt Count (150-450) 10^3/uL Neut % (Auto) (42.2-75.2) % Lymph % (Auto) (20.5-50.1) % [place] % (Auto) (2-8) % Eos % (Auto) (1.0-3.0) % Baso % (Auto) (0.0-1.0) % Sodium (136-145) mmol/L Potassium (3.5-5.1) mmol/L Chloride (98-107) mmol/L Carbon Dioxide (21-32) mmol/L Anion Gap (7-13) mEq/L BUN (7-18) mg/dL Creatinine (0.70-1.30) mg/dL Est Cr Clr Drug Dosing mL/min Estimated GFR (MDRD) BUN/Creatinine Ratio (No establ ref range) Glucose (70-99) mg/dL Calcium (8.5-10.1) mg/dL Total Bilirubin (0.2-1.0) mg/dL AST (15-37) U/L ALT (16-63) U/L Alkaline Phosphatase (46-116) U/L Troponin I High Sens (<=76) pg/mL C-Reactive Protein (0.0-0.9) mg/dL B-Natriuretic Peptide (0-100) pg/ml Total Protein (6.4-8.2) g/dL Albumin (3.4-5.0) g/dL Globulin Albumin/Globulin Ratio Urine Color Yellow (YELLOW) Urine Appearance Clear (CLEAR) Urine pH 7.0 (5.0-9.0) Ur Specific [place] 1.025 (1.005-1.030) Urine Protein >=300 H (NEGATIVE) Urine Glucose (UA) Negative (NEGATIVE) Urine Ketones Negative (NEGATIVE) Urine Occult Blood Moderate H (NEGATIVE) Urine Nitrite Negative (NEGATIVE) Urine Bilirubin Negative (NEGATIVE) Urine Urobilinogen 1.0 (0.2-1.0) mg/dL Ur Leukocyte Esterase Negative (NEGATIVE) Urine RBC 10-20 H /HPF Urine WBC 0-5 (0-5/HPF) /HPF Ur Epithelial Cells Few (NOT SEEN) /HPF Urine Bacteria Not seen (0-FEW/HPF) /HPF Urine Mucus Not seen (NOT SEEN) /LPF Urine Opiates Screen Negative (NEGATIVE) Ur Oxycodone Screen Negative (NEGATIVE) Urine Methadone Screen Negative (NEGATIVE) Ur Barbiturates Screen Negative (NEGATIVE) U Tricyclic Antidepress Negative (NEGATIVE) Ur Phencyclidine Scrn Negative (NEGATIVE) Ur Amphetamine Screen Negative (NEGATIVE) U Methamphetamines Scrn Positive H (NEGATIVE) Urine MDMA Screen Negative (NEGATIVE) U Benzodiazepines Scrn Negative (NEGATIVE) Urine Cocaine Screen Negative (NEGATIVE) U Marijuana (THC) Screen Positive H (NEGATIVE) Ethyl Alcohol (0) mg/dL SARS-CoV-2 RNA (MILADY) (NEGATIVE) Meds: Medications Generic Name Dose Route Start Last Admin Trade Name Freq PRN Reason Stop Dose Admin Sodium Chloride 1,000 mls @ 200 mls/hr 03/16/21 13:00 03/16/21 13:24 Normal Saline IV 03/16/21 17:59 200 mls/hr CONTINUOUS ONE Administration Discontinued Medications Generic Name Dose Route Start Last Admin Trade Name Freq PRN Reason Stop Dose Admin Aspirin 324 mg 03/16/21 13:33 03/16/21 13:39 Aspirin 81 Mg Tab.Chew PO 03/16/21 13:34 324 mg ONETIME ONE Administration Aspirin Confirm 03/16/21 13:36 Aspirin 81 Mg Tab.Chew Administered 03/16/21 13:37 Dose 324 mg .ROUTE .STK-MED ONE Hydromorphone HCl 0.5 mg 03/16/21 13:02 03/16/21 13:24 Hydromorphone 0.5 Mg/0.5 Ml Syringe IVPUSH 03/16/21 13:03 0.5 mg ONETIME ONE Administration - Radiology Interpretation Free Text/Narrative:: Head CT without contrast: Periorbital soft tissue swelling. No sign of underlying orbital or facial bone fracture. Nasal septum is straight in the midline. Asymmetric inflammatory changes ethmoid and maxillary sinus on the left, note the wall left orbit poorly defined and cannot exclude occult blowout fracture. No obvious entrapment of the medial rectus muscle. Uniformly thick bony calvarium without sign of skull fracture, underlying brain contusion or epidural/subdural hematoma. Symmetric normal woodward-white matter pattern and underlying mirror image normal ventricular system. No supratentorial or posterior fossa mass lesion. No hydrocephalus. Physiologic pineal/choroid plexus calcifications. No sign of acute intracerebral, intraventricular, or subarachnoid bleed. No ischemic infarcts, abnormal areas of cerebral edema or signs of encephalomalacia. Cerebellum and brainstem unremarkable. Conclusion: Possible sequelae of left orbital trauma. Emergency unenhanced CT scan of head and brain otherwise unremarkable. Cervical spine CT without contrast: No acute fracture or dislocation cervical spine. Left maxillary sinusitis. - Re-Assessments/Exams Free Text/Narrative Re-Assessment/Exam: 03/16/21 13:52 Discussed patient case with Dr. Childers at [facility] who agreed to accept the patient for transfer. Cervical collar was placed on the patient, who continually takes it off, refuses to wear it. Departure - Departure Time of Disposition: 13:07 Disposition: Home, Self-Care 01 Condition: Fair Clinical Impression: Elevated troponin Facial trauma Qualifiers: Encounter type: initial encounter Qualified Code(s): S09.93XA - Unspecified injury of face, initial encounter - Discharge Information *PRESCRIPTION DRUG MONITORING PROGRAM REVIEWED*: No *COPY OF PRESCRIPTION DRUG MONITORING REPORT IN PATIENT TANYA: No Forms: ED Department Discharge, Interfacility Transfer RE Sepsis Event Note (ED) - Evaluation Sepsis Screening Result: No Definite Risk - Focused Exam Vital Signs: Vital Signs Temp Pulse Resp BP 03/16/21 10:55 99.1 F 99 26 H 107/80 - My Orders Last 24 Hours: My Active Orders 03/16/21 10:49 EKG Documentation Completion [RC] STAT 03/16/21 13:00 Sodium Chloride 0.9% [Normal Saline] 1,000 ml IV CONTINUOUS - Assessment/Plan Last 24 Hours: My Active Orders 03/16/21 10:49 EKG Documentation Completion [RC] STAT 03/16/21 13:00 Sodium Chloride 0.9% [Normal Saline] 1,000 ml IV CONTINUOUS
[2021-03-16 11:26] LABS: ANION GAP 13.2 mEq/L (7-13); CHLORIDE,CL 102 mmol/L (98-107); SODIUM,NA 138 mmol/L (136-145)
--- NOTE | 2021-03-16 11:53 | CT ---
EXAMINATION: Cervical Spine wo Cont SEX: Male AGE: 50 years CLINICAL HISTORY: 50-year-old male injured in fall (facial trauma). Scan technique: Volume acquisition of data from the entire cervical spine and first 2 thoracic vertebra obtained with the patient lying supine on the Siemens multislice scanner [place], [place]. All data archived in the PACS system for storage, reformatting axial/sagittal/coronal planes and study. Interpretation: No acute fracture or dislocation cervical spine. Left maxillary sinusitis. 1. Straightening of usual cervical lordosis. 2. Evidence of chronic severe lower cervical disc degeneration with associated hypertrophic marginal and some uncinate spur formation at C5-C6 level. Old trauma and spur C7. 3. Dense reactive atlantoaxial arthritic sclerosis. 4. No prevertebral soft tissue swelling, acute cervical fracture, spondylolisthesis or jump locked facet. 5. Degenerative changes facet joints (right greater than left). No cervical rib anomalies. Lung apices clear. 6. dependent air-fluid level in the left maxillary antrum. No obvious facial bone fracture and No basal skull fracture.
--- NOTE | 2021-03-16 11:58 | CT ---
EXAMINATION: Head wo Cont SEX: Male AGE: 50 years CLINICAL HISTORY: 50-year-old male injured in fall. Scan technique: Volume acquisition of data emergency unenhanced CT scan of the head and brain obtained with patient lying supine on the Siemens multislice scanner [place], [place]. All data archived in the PACS system for storage, reformatting and study. Interpretation: Periorbital soft tissue swelling. No sign of underlying orbital or facial bone fracture. Nasal septum is straight in the midline. Asymmetric inflammatory changes ethmoid and maxillary sinus on the left (note: The wall left orbit poorly defined and cannot exclude occult "blowout" fracture. No obvious entrapment of the medial rectus muscle). Clinical correlation? Uniformly thick bony calvarium without sign of skull fracture, underlying brain contusion or epidural/subdural hematoma. Symmetric normal woodward-white matter pattern and underlying mirror-image normal ventricular system. No supratentorial or posterior fossa mass lesion. No hydrocephalus. Physiologic pineal/choroid plexus calcifications. No sign of acute intracerebral, intraventricular or subarachnoid bleed. No ischemic infarcts, abnormal areas of cerebral edema or signs of encephalomalacia. Cerebellum and brainstem unremarkable. CONCLUSION: Possible sequelae of left orbital trauma (see above). Emergency unenhanced CT scan of the head and brain otherwise unremarkable.
[2021-03-16] MEDS ORDERED: Sodium Chloride 0.9% 1,000 ML IV ONE (13:00)
[2021-03-16] MEDS ORDERED: HYDROmorphone 0.5 MG/0.5 ML Syringe IVPUSH ONE (13:02)
[2021-03-16] MEDS ORDERED: Aspirin 81 MG Tab.Chew PO ONE (13:33)
[2021-03-16] MEDS ORDERED: Aspirin 81 MG Tab.Chew ONE (13:36)
== END 2021-03-16 14:00 | disposition home or self-care (01) ==
LOC: DL.ED 11:18
DX: S05.12XA Contusion of eyeball and orbital tissues, left eye, initial encounter (principal); S05.11XA Contusion of eyeball and orbital tissues, right eye, initial encounter; R79.89 Other specified abnormal findings of blood chemistry; I11.0 Hypertensive heart disease with heart failure; I50.9 Heart failure, unspecified; I25.2 Old myocardial infarction; Z88.5 Allergy status to narcotic agent; Z88.6 Allergy status to analgesic agent; Z88.8 Allergy status to other drugs, medicaments and biological substances; Z79.82 Long term (current) use of aspirin; Z79.899 Other long term (current) drug therapy; Z20.822 Contact with and (suspected) exposure to COVID-19; W18.30XA Fall on same level, unspecified, initial encounter
CPT/HCPCS: 36415; 70450; 72125; 80053; 80305; 80307; 81001; 83880; 84484; 85025; 86140; 87635; 93005; 96374; 99285; A9270; J1170; J7030; 93010; 99284; U0002

== ENCOUNTER 2021-03-20 10:19 | Inpatient (IN) | payer MEDICAID ==
[2021-03-20] MEDS ORDERED: Acetaminophen 325 MG Tab PO PRN (13:14)
[2021-03-20] MEDS ORDERED: Ondansetron 4 MG Tab.DIS PO PRN (13:14)
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
[2021-03-20 14:22] LABS: ANION GAP 10.4 mEq/L (7-13); CHLORIDE,CL 106 mmol/L (98-107); SODIUM,NA 142 mmol/L (136-145)
[2021-03-20 14:25] LABS: PTT,PARTIAL THROMBOPLSTIN TIME 30.7 SEC (22.0-34.0)
[2021-03-20] MEDS: Furosemide 40 MG Tab PO SCH (15:51)
[2021-03-20] MEDS: Gabapentin 300 MG Cap PO SCH ×2 (15:52→20:15)
[2021-03-20] MEDS: Acetaminophen/oxyCODONE 325-5 MG Tab PO PRN ×2 (15:52→20:16)
[2021-03-20] MEDS: Carvedilol 3.125 MG Tab PO SCH (17:23)
[2021-03-20] MEDS: Cephalexin 500 MG Cap PO SCH ×2 (17:23→20:15)
[2021-03-20] MEDS ORDERED: atorvaSTATin 10 MG Tab PO SCH (21:00)
[2021-03-20] MEDS ORDERED: Mirtazapine 15 MG Tab PO SCH (21:00)
[2021-03-20] MEDS ORDERED: Tamsulosin 0.4 MG Cap.ER PO SCH (21:00)
[2021-03-20] MEDS ORDERED: QUEtiapine 100 MG Tab PO SCH (21:00)
[2021-03-21] MEDS: Acetaminophen/oxyCODONE 325-5 MG Tab PO PRN ×5 (01:36→21:04)
[2021-03-21] MEDS: Carvedilol 3.125 MG Tab PO SCH (08:58)
[2021-03-21] MEDS: Cephalexin 500 MG Cap PO SCH ×4 (08:59→21:04)
[2021-03-21] MEDS: Enoxaparin 40 MG/0.4 ML Syringe SUBCUT SCH ×2 (09:00→09:07)
[2021-03-21] MEDS: Furosemide 40 MG Tab PO SCH (09:00)
[2021-03-21] MEDS: Gabapentin 300 MG Cap PO SCH ×3 (09:00→21:04)
[2021-03-21] MEDS ORDERED: Lisinopril 5 MG Tab PO SCH (09:00)
[2021-03-21] MEDS: Bacitracin Oint 28.35 GM Tube TOP SCH (09:01)
[2021-03-21] MEDS: Zolpidem 5 MG Tab PO PRN (21:04)
[2021-03-21] MEDS: ATORVASTATIN 10 MG PO SCH (21:05)
[2021-03-21] MEDS: Tamsulosin 0.4 MG Cap.ER *PT OWN MED PO SCH (21:07)
[2021-03-22] MEDS: LISINOPRIL 5 MG PO SCH (09:18)
[2021-03-22] MEDS: Furosemide 40 MG Tab PO SCH (09:19)
[2021-03-22] MEDS: Gabapentin 300 MG Cap PO SCH ×3 (09:19→21:49)
[2021-03-22] MEDS: Bacitracin Oint 28.35 GM Tube TOP SCH (09:20)
[2021-03-22] MEDS: Cephalexin 500 MG Cap PO SCH ×4 (09:20→21:49)
[2021-03-22] MEDS: Acetaminophen/oxyCODONE 325-5 MG Tab PO PRN ×4 (09:24→22:00)
[2021-03-22] MEDS: Enoxaparin 40 MG/0.4 ML Syringe SUBCUT SCH (09:25)
[2021-03-22] MEDS: ATORVASTATIN 10 MG PO SCH (21:55)
[2021-03-22] MEDS: Tamsulosin 0.4 MG Cap.ER *PT OWN MED PO SCH (21:58)
[2021-03-22] MEDS: Zolpidem 5 MG Tab PO PRN (22:03)
[2021-03-23] MEDS: Acetaminophen/oxyCODONE 325-5 MG Tab PO PRN ×2 (03:13→09:08)
[2021-03-23 07:46] VITALS: BP 111/71; PULSE 88
--- NOTE | 2021-03-23 08:09 | PCM.PN ---
- General Info Date of Service: 03/23/21 Subjective Update: The patient endorses no complaints at this time. He denies fever, rigors, nausea, vomiting, cough, wheeze, abdominal pain, chest pain, dyspnea, or any other constitutional complaints. He states that his pain is adequately controlled. The patient states that he is eating adequate amounts and that he is having bowel movements on a regular basis. I explained to the patient his current medical condition and plan of care and I have answered all of his questi ons Functional Status: Reports: Pain Controlled - Review of Systems General: Reports: No Symptoms HEENT: Reports: No Symptoms Pulmonary: Reports: No Symptoms Cardiovascular: Reports: No Symptoms Gastrointestinal: Reports: No Symptoms Genitourinary: Reports: No Symptoms Musculoskeletal: Reports: No Symptoms Skin: Reports: No Symptoms Neurological: Reports: No Symptoms Psychiatric: Reports: No Symptoms - Patient Data Vitals - Most Recent: Last Vital Signs Temp 96.6 F L 03/23/21 07:45 Pulse 88 03/23/21 07:45 Resp 20 03/23/21 07:45 BP 111/71 03/23/21 07:45 Pulse Ox 98 03/23/21 07:45 Weight - Most Recent: 217 lb 12.8 oz I&O - Last 24 Hours: Intake & Output 03/22/21 03/23/21 03/23/21 22:59 06:59 14:59 Intake Total 847 300 Balance 847 300 Med Orders - Current: Current Medications Acetaminophen (Acetaminophen 325 Mg Tab) 650 mg PO Q4H PRN PRN Reason: Pain (Mild 1-3)/fever Last Admin: 03/21/21 15:55 Dose: 650 mg Documented by: Bacitracin (Bacitracin Oint 28.35 Gm Tube) 0 gm TOP DAILY [facility] Last Admin: 03/22/21 09:20 Dose: 1 applic Documented by: Cephalexin (Cephalexin 500 Mg Cap) 500 mg PO QID [facility] Stop: 03/30/21 23:59 Last Admin: 03/22/21 21:49 Dose: 500 mg Documented by: Enoxaparin Sodium (Enoxaparin 40 Mg/0.4 Ml Syringe) 40 mg SUBCUT DAILY [facility] Last Admin: 03/22/21 09:25 Dose: Not Given Documented by: Furosemide (Furosemide 40 Mg Tab) 40 mg PO DAILY [facility] Last Admin: 03/22/21 09:19 Dose: 40 mg Documented by: Gabapentin (Gabapentin 300 Mg Cap) 600 mg PO TID [facility] Last Admin: 03/22/21 21:49 Dose: 600 mg Documented by: Ondansetron HCl (Ondansetron 4 Mg Tab.Dis) 4 mg PO Q4H PRN PRN Reason: nausea, able to take PO Oxycodone/Acetaminophen (Acetaminophen/Oxycodone 325-5 Mg Tab) 1 tab PO Q4H PRN PRN Reason: Pain (moderate 4-6) Last Admin: 03/23/21 03:13 Dose: 1 tab Documented by: Mirtazapine 30 Mg (Tab *Pt Own Med*) 0 each PO BEDTIME [facility] Last Admin: 03/22/21 21:56 Dose: 1 each Documented by: Lisinopril 5 Mg Tab (*Pt Own Med*) 0 each PO DAILY [facility] Last Admin: 03/22/21 09:18 Dose: 2.5 each Documented by: Carvedilol 6.25 Mg (Tab *Pt Own Med*) 0 each PO BIDMEALS [facility] Last Admin: 03/22/21 17:26 Dose: 1 each Documented by: Atorvastatin 10 Mg (Tab*Pt Own Med*) 0 each PO BEDTIME [facility] Last Admin: 03/22/21 21:55 Dose: 1 each Documented by: Quetiapine 100 Mg (Tab *Pt Own Med*) 0 each PO BEDTIME [facility] Last Admin: 03/22/21 21:57 Dose: 1 each Documented by: Tamsulosin 0.4 Mg (Cap.Er *Pt Own Med*) 0 each PO BEDTIME [facility] Last Admin: 03/22/21 21:58 Dose: 1 each Documented by: Zolpidem Tartrate (Zolpidem 5 Mg Tab) 5 mg PO BEDTIME PRN PRN Reason: Insomnia Last Admin: 03/22/21 22:03 Dose: 5 mg Documented by: Discontinued Medications Atorvastatin Calcium (Atorvastatin 10 Mg Tab) 10 mg PO BEDTIME [facility] Last Admin: 03/20/21 20:15 Dose: 10 mg Documented by: Carvedilol (Carvedilol 3.125 Mg Tab) 3.125 mg PO BIDMEALS [facility] Last Admin: 03/21/21 08:58 Dose: 3.125 mg Documented by: Lisinopril (Lisinopril 5 Mg Tab) 2.5 mg PO DAILY [facility] Last Admin: 03/21/21 08:59 Dose: 2.5 mg Documented by: Mirtazapine (Mirtazapine 15 Mg Tab) 30 mg PO BEDTIME [facility] Last Admin: 03/20/21 20:15 Dose: 30 mg Documented by: Quetiapine Fumarate (Quetiapine 100 Mg Tab) 100 mg PO BEDTIME [facility] Last Admin: 03/20/21 20:15 Dose: 100 mg Documented by: Tamsulosin HCl (Tamsulosin 0.4 Mg Cap.Er) 0.4 mg PO BEDTIME [facility] Last Admin: 03/20/21 20:15 Dose: 0.4 mg Documented by: - Exam General: Alert, Oriented HEENT: Pupils Equal, Pupils Reactive, EOMI, Mucous Membr. Moist/[place], Other (Maurer sign present) Neck: Supple Lungs: Clear to Auscultation, Normal Respiratory Effort Cardiovascular: Regular Rate, Regular Rhythm GI/Abdominal Exam: Normal Bowel Sounds, Soft, Non-Tender, No Organomegaly, No Distention, No Abnormal Bruit, No Mass, Pelvis Stable Back Exam: Normal Inspection, Full Range of Motion Extremities: Normal Inspection, Normal Range of Motion, Non-Tender, No Pedal Edema, Normal Capillary Refill Skin: Warm, Dry, Intact Wound/Incisions: Healing Well Neurological: No New Focal Deficit Psy/Mental Status: Alert, Normal Affect, Normal Mood - Patient Data Result Diagrams: 03/20/21 13:55 03/20/21 13:55 Sepsis Event Note - Evaluation Sepsis Screening Result: No Definite Risk - Focused Exam Vital Signs: Vital Signs Temp Pulse Resp BP Pulse Ox 03/23/21 07:45 96.6 F L 88 20 111/71 98 03/22/21 21:47 98.3 F 89 20 102/80 94 L - Problem List Review Problem List Initiated/Reviewed/Updated: Yes - My Orders Last 24 Hours: My Active Orders 03/22/21 09:00 Patient's Own Medication [Ptom] 0 each PO DAILY - Plan Plan:: Admission to swing bed status following transfer from outside facility with no surgical intervention required for left orbital medial wall fracture and left zygomatic arch fracture. Physical therapy. Occupational Therapy. Bacitracin to be applied affected area daily. Keflex 500 mg p.o. 4 times daily until 11:59 PM on 11/30/2020 1 cm left adrenal adenoma. Outpatient monitoring with his primary care physician or provider Elevated liver function test. Will monitor LFTs periodically with CMP Coagulopathy. Will monitor PT/INR periodically Hepatic steatosis Neuropathy. Gabapentin 600 mg p.o. 3 times daily Depression. Remeron 30 mg p.o. nightly Po Seroquel 100 mg p.o. nightly BPH. Flomax 0.4 mg p.o. daily Degenerative disc disease History of microscopic hematuria. Outpatient follow-up with urology upon dis charge CHF, preserved ejection fraction. Coreg 3.125 mg p.o. twice daily plus Lasix 40 mg p.o. daily with lisinopril 2.5 mg p.o. daily Severe pulmonary hypertension Severe tricuspid regurgitation Coronary artery disease, status post [place], status post CABG. Coreg 3.125 mg p.o. twice daily plus Lipitor 10 mg p.o. nightly Hyperlipidemia. Lipitor 10 mg p.o. nightly Hypertension. Coreg 3.25 mg p.o. twice daily plus Lasix 40 mg p.o. daily plus lisinopril 2.5 mg p.o. daily Obesity. Patient be counseled regarding lifestyle modification Smoker. Patient be counseled regarding smoking cessation History of bioprosthetic mitral valve replacement Polysubstance abuse. Will refer the patient for rehabilitation upon discharge DVT prophylaxis. Lovenox 40 mg subcutaneously daily
[2021-03-23] MEDS: Cephalexin 500 MG Cap PO SCH ×2 (09:03→13:02)
[2021-03-23] MEDS: Bacitracin Oint 28.35 GM Tube TOP SCH (09:03)
[2021-03-23] MEDS: Enoxaparin 40 MG/0.4 ML Syringe SUBCUT SCH (09:04)
[2021-03-23] MEDS: Furosemide 40 MG Tab PO SCH (09:04)
[2021-03-23] MEDS: Gabapentin 300 MG Cap PO SCH ×2 (09:05→13:02)
[2021-03-23] MEDS: LISINOPRIL 5 MG PO SCH (09:06)
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
== END 2021-03-23 15:19 | disposition home or self-care (01) | DRG 949 ==
LOC: DL.MS 11:28
PROVIDERS: ADMIT Internal Medicine; ATTEND Internal Medicine
DX: S02.832D Fracture of medial orbital wall, left side, subsequent encounter for fracture with routine healing (principal); I50.32 Chronic diastolic (congestive) heart failure; D68.9 Coagulation defect, unspecified; S02.40FD Zygomatic fracture, left side, subsequent encounter for fracture with routine healing; W18.39XD Other fall on same level, subsequent encounter; F32.9 Major depressive disorder, single episode, unspecified; G62.9 Polyneuropathy, unspecified; K76.0 Fatty (change of) liver, not elsewhere classified; N40.0 Benign prostatic hyperplasia without lower urinary tract symptoms; I11.0 Hypertensive heart disease with heart failure; I25.10 Atherosclerotic heart disease of native coronary artery without angina pectoris; I25.2 Old myocardial infarction; Z95.1 Presence of aortocoronary bypass graft; E78.5 Hyperlipidemia, unspecified; I07.1 Rheumatic tricuspid insufficiency; F17.210 Nicotine dependence, cigarettes, uncomplicated; Z79.01 Long term (current) use of anticoagulants; Z95.2 Presence of prosthetic heart valve; F19.10 Other psychoactive substance abuse, uncomplicated; Z86.16 Personal history of COVID-19; E66.9 Obesity, unspecified; Z68.31 Body mass index [BMI] 31.0-31.9, adult
CPT/HCPCS: 36415; 80053; 85025; 85610; 85730; 97161-GP; 97165-GO; 99306; 99315; A9270-GY; J1650

== ENCOUNTER 2021-04-14 20:46 | Emergency (ER) | payer MEDICAID ==
[2021-04-14 22:22] LABS: ANION GAP 12.9 mEq/L (7-13); CHLORIDE,CL 105 mmol/L (98-107); SODIUM,NA 140 mmol/L (136-145)
[2021-04-14] MEDS ORDERED: Sodium Chloride 0.9% 1,000 ML IV ONE (22:25)
[2021-04-14 23:43] VITALS: BP 135/84; PULSE 77
[2021-04-14] MEDS ORDERED: Sodium Chloride 0.9% 1,000 ML IV SCH (23:45)
[2021-04-14 23:49] LABS: AMPHETAMINES,URINE NEGATIVE (NEGATIVE); BARBITURATES,URINE NEGATIVE (NEGATIVE); BENZODIAZEPINE,URINE NEGATIVE (NEGATIVE); MDMA (ECSTASY), URINE NEGATIVE (NEGATIVE); METHADONE,URINE NEGATIVE (NEGATIVE); METHAMPHETAMINES,URINE POSITIVE (NEGATIVE); OPIATES,URINE NEGATIVE (NEGATIVE); OXYCODONE,URINE NEGATIVE (NEGATIVE); PHENCYCLIDINE,URINE NEGATIVE (NEGATIVE); TCA,URINE NEGATIVE (NEGATIVE)
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
== END 2021-04-15 00:10 ==
LOC: DL.ED 20:46
DX: I86.1 Scrotal varices (principal); F15.10 Other stimulant abuse, uncomplicated; K76.9 Liver disease, unspecified; N17.9 Acute kidney failure, unspecified; I11.0 Hypertensive heart disease with heart failure; I50.9 Heart failure, unspecified; I25.2 Old myocardial infarction; Z72.0 Tobacco use; Z95.1 Presence of aortocoronary bypass graft; Z86.16 Personal history of COVID-19; Z88.8 Allergy status to other drugs, medicaments and biological substances; Z88.5 Allergy status to narcotic agent; Z79.899 Other long term (current) drug therapy
CPT/HCPCS: 36415; 51798; 80053; 80305; 80307; 81003; 85025; 85610; 99285; J7030; 99284

== ENCOUNTER 2021-05-20 18:19 | Emergency (ER) | payer MEDICAID ==
[2021-05-20 19:05] LABS: ANION GAP 16.2 mEq/L (7-13); CHLORIDE,CL 104 mmol/L (98-107); SODIUM,NA 140 mmol/L (136-145)
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
[2021-05-20 19:48] VITALS: BP 122/98; PULSE 90
--- NOTE | 2021-05-20 20:01 | CR ---
PROCEDURE INFORMATION: Exam: XR Chest Exam date and time: 05/20/2021 6:28 PM Age: 50 years old Clinical indication: Shortness of breath; Additional info: Short of breath TECHNIQUE: Imaging protocol: XR of the chest. Views: 1 view. COMPARISON: CR Chest 1V Frontal 02/27/2021 9:07 PM FINDINGS: Lungs: Lungs are clear bilaterally. Pleural spaces: No pleural effusion. No pneumothorax. Heart/Mediastinum: Stable moderate enlargement of the cardiac silhouette. Mediastinal contours are unremarkable. Vasculature: Stable vascular calcifications in the aorta. Bones/joints: Stable poststernotomy changes in the chest. Stable degenerative changes in the spine and shoulders. IMPRESSION: 1. No acute cardiopulmonary process. 2. Incidental/nonacute findings are listed in the report.
[2021-05-20] MEDS: Furosemide 40 MG/4 ML VIAL ONE ×2 (20:45→21:10)
[2021-05-21] MEDS ORDERED: Furosemide 40 MG/4 ML VIAL IVPUSH ONE (20:17)
== END 2021-05-20 21:42 | disposition home or self-care (01) ==
LOC: DL.ED 18:19
DX: I11.0 Hypertensive heart disease with heart failure (principal); I50.22 Chronic systolic (congestive) heart failure; I25.2 Old myocardial infarction; Z88.5 Allergy status to narcotic agent; Z88.8 Allergy status to other drugs, medicaments and biological substances; Z86.16 Personal history of COVID-19; Z79.899 Other long term (current) drug therapy
CPT/HCPCS: 36415; 71045; 80053; 81001; 83605; 83880; 84484; 85025; 87040; 93005; 96374; 99285; J1940

== ENCOUNTER 2021-06-09 00:23 | Emergency (ER) | payer MEDICAID ==
[2021-06-09 00:46] VITALS: BP 116/87; PULSE 97
[2021-06-09] MEDS ORDERED: Furosemide 40 MG/4 ML VIAL IVPUSH ONE (01:12)
[2021-06-09 01:32] LABS: ANION GAP 13.5 mEq/L (7-13); CHLORIDE,CL 104 mmol/L (98-107); SODIUM,NA 138 mmol/L (136-145)
[2021-06-09 01:35] LABS: AMPHETAMINES,URINE NEGATIVE (NEGATIVE); BARBITURATES,URINE NEGATIVE (NEGATIVE); BENZODIAZEPINE,URINE NEGATIVE (NEGATIVE); MDMA (ECSTASY), URINE NEGATIVE (NEGATIVE); METHADONE,URINE NEGATIVE (NEGATIVE); METHAMPHETAMINES,URINE POSITIVE (NEGATIVE); OPIATES,URINE NEGATIVE (NEGATIVE); OXYCODONE,URINE POSITIVE (NEGATIVE); PHENCYCLIDINE,URINE NEGATIVE (NEGATIVE); TCA,URINE NEGATIVE (NEGATIVE)
--- NOTE | 2021-06-09 02:37 | CR ---
PROCEDURE INFORMATION: Exam: XR Chest Exam date and time: 06/09/2021 2:02 AM Age: 50 years old Clinical indication: Other: SOB, legs swollen TECHNIQUE: Imaging protocol: XR of the chest. Views: 1 view. COMPARISON: CR Chest 1V Frontal 05/20/2021 6:28 PM FINDINGS: Lungs: There are low lung volumes. Otherwise, the lungs are clear. Pleural spaces: Unremarkable. No pleural effusion. No pneumothorax. Heart/Mediastinum: There is mild cardiomegaly. Bones/joints: There has been a median sternotomy. IMPRESSION: 1. Mild cardiomegaly. 2. There are low lung volumes. Otherwise, the lungs are clear.
[2021-06-09] MEDS ORDERED: Acetaminophen 500 MG Tab PO ONE (02:50)
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
== END 2021-06-09 03:21 | disposition home or self-care (01) ==
LOC: DL.ED 00:23
DX: M79.605 Pain in left leg (principal); M79.604 Pain in right leg; F15.10 Other stimulant abuse, uncomplicated; I25.10 Atherosclerotic heart disease of native coronary artery without angina pectoris; I50.9 Heart failure, unspecified; I25.2 Old myocardial infarction; Z72.0 Tobacco use; Z86.16 Personal history of COVID-19; Z88.5 Allergy status to narcotic agent; Z88.8 Allergy status to other drugs, medicaments and biological substances; Z79.899 Other long term (current) drug therapy
CPT/HCPCS: 36415; 71045; 80053; 80305; 80307; 83735; 83880; 84484; 85025; 85610; 93005; 96374; 99284; A9270; J1940

== ENCOUNTER 2021-06-29 04:20 | Emergency (ER) | payer MEDICAID ==
[2021-06-29 04:42] VITALS: BP 91/69; PULSE 96
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
--- NOTE | 2021-06-29 05:11 | CR ---
PROCEDURE INFORMATION: Exam: XR Chest Exam date and time: 06/29/2021 4:52 AM Age: 50 years old Clinical indication: Other: Chest pain TECHNIQUE: Imaging protocol: XR of the chest. Views: 1 view. COMPARISON: CR Chest 1V Frontal 06/09/2021 2:02 AM FINDINGS: Lungs: Unremarkable. No consolidation. Pleural spaces: Unremarkable. No pleural effusion. No pneumothorax. Heart/Mediastinum: Unremarkable. No cardiomegaly. Bones/joints: Unremarkable. IMPRESSION: No acute findings.
[2021-06-29 05:16] LABS: ANION GAP 9.3 mEq/L (7-13); CHLORIDE,CL 103 mmol/L (98-107); SODIUM,NA 134 mmol/L (136-145)
[2021-06-29 05:34] LABS: AMPHETAMINES,URINE NEGATIVE (NEGATIVE); BARBITURATES,URINE NEGATIVE (NEGATIVE); BENZODIAZEPINE,URINE NEGATIVE (NEGATIVE); MDMA (ECSTASY), URINE NEGATIVE (NEGATIVE); METHADONE,URINE NEGATIVE (NEGATIVE); METHAMPHETAMINES,URINE POSITIVE (NEGATIVE); OPIATES,URINE NEGATIVE (NEGATIVE); OXYCODONE,URINE NEGATIVE (NEGATIVE); PHENCYCLIDINE,URINE NEGATIVE (NEGATIVE); TCA,URINE NEGATIVE (NEGATIVE)
[2021-06-29] MEDS ORDERED: Fluorescein 1 MG Ophth Strip EYERT ONE (06:08)
[2021-06-29] MEDS ORDERED: Tetracaine HCl/PF 0.5% 4 ML Bottle EYERT ONE (06:08)
== END 2021-06-29 07:00 | disposition home or self-care (01) ==
LOC: DL.ED 04:20
DX: S05.01XA Injury of conjunctiva and corneal abrasion without foreign body, right eye, initial encounter (principal); I83.813 Varicose veins of bilateral lower extremities with pain; R07.89 Other chest pain; K76.9 Liver disease, unspecified; D50.9 Iron deficiency anemia, unspecified; F15.90 Other stimulant use, unspecified, uncomplicated; I11.0 Hypertensive heart disease with heart failure; I50.9 Heart failure, unspecified; I25.2 Old myocardial infarction; F17.210 Nicotine dependence, cigarettes, uncomplicated; Z86.16 Personal history of COVID-19; Z88.5 Allergy status to narcotic agent; Z88.8 Allergy status to other drugs, medicaments and biological substances; X58.XXXA Exposure to other specified factors, initial encounter
CPT/HCPCS: 36415; 71045; 80053; 80305; 80307; 81001; 83605; 83735; 83880; 84484; 85025; 86140; 93005; 99285; A9270

== ENCOUNTER 2021-06-30 17:05 | Emergency (ER) | payer MEDICAID ==
[2021-06-30 17:43] VITALS: BP 104/75; PULSE 105
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
[2021-06-30 18:16] LABS: ANION GAP 12.6 mEq/L (7-13); CHLORIDE,CL 99 mmol/L (98-107); SODIUM,NA 133 mmol/L (136-145)
[2021-06-30 18:43] LABS: AMPHETAMINES,URINE POSITIVE (NEGATIVE); BARBITURATES,URINE NEGATIVE (NEGATIVE); BENZODIAZEPINE,URINE NEGATIVE (NEGATIVE); MDMA (ECSTASY), URINE NEGATIVE (NEGATIVE); METHADONE,URINE NEGATIVE (NEGATIVE); METHAMPHETAMINES,URINE POSITIVE (NEGATIVE); OPIATES,URINE NEGATIVE (NEGATIVE); OXYCODONE,URINE POSITIVE (NEGATIVE); PHENCYCLIDINE,URINE NEGATIVE (NEGATIVE); TCA,URINE NEGATIVE (NEGATIVE)
[2021-06-30] MEDS ORDERED: Iopamidol 755 Mg/ML 100 ML Bottle IVPUSH ONE (18:51)
--- NOTE | 2021-06-30 21:36 | CT ---
PROCEDURE INFORMATION: Exam: CT Chest Without Contrast; Diagnostic Exam date and time: 06/30/2021 8:54 PM Age: 50 years old Clinical indication: Shortness of breath and other: Hypoxia; Prior surgery; Surgery date: 6+ months; Additional info: SOB, hypoxia, elevated d dimer TECHNIQUE: Imaging protocol: Diagnostic computed tomography of the chest without contrast. Radiation optimization: All CT scans at this facility use at least one of these dose optimization techniques: automated exposure control; mA and/or kV adjustment per patient size (includes targeted exams where dose is matched to clinical indication); or iterative reconstruction. COMPARISON: CT Chest Abdomen Pelvis wo Cont 08/27/2020 5:09 AM FINDINGS: Lungs: Unremarkable. No consolidation. No masses. Pleural spaces: Unremarkable. No pneumothorax. No pleural effusion. Heart: Moderate cardiomegaly as before. No pericardial effusion. Pulmonary arteries: Dilated pulmonary vasculature has not significantly changed from prior. Aorta: The aorta demonstrates mild atherosclerotic calcification. No aortic aneurysm. Lymph nodes: There is no evidence of lymphadenopathy. Intraperitoneal space: Visualized upper abdomen demonstrates mild ascites. Bones/joints: No acute fracture or dislocation. Sternotomy wires in place. Soft tissues: Unremarkable. IMPRESSION: No evidence of acute abnormality in the chest. No significant change from prior.
== END 2021-07-01 00:02 | disposition home or self-care (01) ==
LOC: DL.ED 17:05
DX: I83.813 Varicose veins of bilateral lower extremities with pain (principal); R79.1 Abnormal coagulation profile; F15.129 Other stimulant abuse with intoxication, unspecified; F12.90 Cannabis use, unspecified, uncomplicated; D50.9 Iron deficiency anemia, unspecified; K76.9 Liver disease, unspecified; I45.10 Unspecified right bundle-branch block; I11.0 Hypertensive heart disease with heart failure; I50.9 Heart failure, unspecified; I25.2 Old myocardial infarction; Z86.16 Personal history of COVID-19; Z72.0 Tobacco use; Z88.5 Allergy status to narcotic agent; Z88.6 Allergy status to analgesic agent; Z79.899 Other long term (current) drug therapy
CPT/HCPCS: 36415; 71250; 80053; 80305-QW; 80307; 81003; 82150; 83605; 83690; 83735; 83880; 84100; 84484; 85025; 85379; 86140; 93005; 99285-25

== ENCOUNTER 2021-07-24 00:57 | Emergency (ER) | payer MEDICAID ==
[2021-07-24] MEDS ORDERED: Sodium Chloride 0.9% 10 ML Syringe FLUSH PRN (01:00)
[2021-07-24 01:05] VITALS: BP 115/83; PULSE 107
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
[2021-07-24 01:52] LABS: ANION GAP 13.4 mEq/L (7-13); CHLORIDE,CL 100 mmol/L (98-107); SODIUM,NA 137 mmol/L (136-145)
[2021-07-24 02:13] LABS: PTT,PARTIAL THROMBOPLSTIN TIME 30.4 SEC (22.0-34.0)
[2021-07-24 03:51] LABS: MDMA (ECSTASY), URINE NEGATIVE (NEGATIVE); METHADONE,URINE NEGATIVE (NEGATIVE); METHAMPHETAMINES,URINE POSITIVE (NEGATIVE)
[2021-07-24 03:52] LABS: AMPHETAMINES,URINE NEGATIVE (NEGATIVE); BARBITURATES,URINE NEGATIVE (NEGATIVE); BENZODIAZEPINE,URINE NEGATIVE (NEGATIVE); OPIATES,URINE NEGATIVE (NEGATIVE); OXYCODONE,URINE NEGATIVE (NEGATIVE); PHENCYCLIDINE,URINE NEGATIVE (NEGATIVE); TCA,URINE NEGATIVE (NEGATIVE)
== END 2021-07-24 04:06 | disposition home or self-care (01) ==
LOC: DL.ED 00:57
DX: F15.129 Other stimulant abuse with intoxication, unspecified (principal); I11.0 Hypertensive heart disease with heart failure; I50.9 Heart failure, unspecified; I25.2 Old myocardial infarction; Z95.5 Presence of coronary angioplasty implant and graft; Z86.16 Personal history of COVID-19; Z88.5 Allergy status to narcotic agent; Z88.8 Allergy status to other drugs, medicaments and biological substances; Z79.899 Other long term (current) drug therapy
CPT/HCPCS: 36415; 80053; 80305-QW; 80307; 81003; 84484; 85025; 85610; 85730; 87040; 93005; 99285-25

== ENCOUNTER 2021-08-20 15:40 | Inpatient (IN) | payer MEDICAID ==
[2021-08-20 15:39] VITALS: BP 122/92; PULSE 106
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
[2021-08-20] MEDS ORDERED: Furosemide 40 MG/4 ML VIAL IVPUSH ONE (16:28)
[2021-08-20] MEDS ORDERED: Ketorolac 30 MG/ML SDV IVPUSH ONE (17:37)
== END 2021-08-20 20:18 | disposition left against medical advice (07) | DRG 293 ==
LOC: DL.ED 15:40 → DL.MS 18:55
PROVIDERS: ADMIT Internal Medicine; ATTEND Internal Medicine
DX: I11.0 Hypertensive heart disease with heart failure (principal); I50.22 Chronic systolic (congestive) heart failure; I42.9 Cardiomyopathy, unspecified; F32.A Depression, unspecified; I25.2 Old myocardial infarction; Z79.01 Long term (current) use of anticoagulants; F17.210 Nicotine dependence, cigarettes, uncomplicated; Z95.2 Presence of prosthetic heart valve; Z86.16 Personal history of COVID-19; Z98.890 Other specified postprocedural states; Z91.19 Patient's noncompliance with other medical treatment and regimen
CPT/HCPCS: 36415; 83880; 96374; 96375; 99285-25; J1885; J1940

== ENCOUNTER 2021-08-26 11:12 | Inpatient (IN) | payer MEDICAID ==
[2021-08-26 11:45] LABS: AMPHETAMINES,URINE NEGATIVE (NEGATIVE); BARBITURATES,URINE NEGATIVE (NEGATIVE); BENZODIAZEPINE,URINE NEGATIVE (NEGATIVE); MDMA (ECSTASY), URINE NEGATIVE (NEGATIVE); METHADONE,URINE NEGATIVE (NEGATIVE); METHAMPHETAMINES,URINE NEGATIVE (NEGATIVE); OPIATES,URINE NEGATIVE (NEGATIVE); OXYCODONE,URINE POSITIVE (NEGATIVE); PHENCYCLIDINE,URINE NEGATIVE (NEGATIVE); TCA,URINE NEGATIVE (NEGATIVE)
[2021-08-26 12:18] LABS: ANION GAP 11.1 mEq/L (7-13); CHLORIDE,CL 104 mmol/L (98-107); SODIUM,NA 140 mmol/L (136-145)
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
[2021-08-26] MEDS ORDERED: Furosemide 40 MG/4 ML VIAL IVPUSH ONE (12:59)
[2021-08-26] MEDS ORDERED: Acetaminophen 325 MG Tab PO PRN (14:04)
[2021-08-26] MEDS ORDERED: Sodium Chloride 0.9% 10 ML Syringe FLUSH PRN (14:14)
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
[2021-08-26] MEDS: Potassium Chloride 10 MEQ Tab.ER PO SCH ×2 (15:20→17:18)
[2021-08-26] MEDS: Carvedilol 3.125 MG Tab PO SCH (17:17)
[2021-08-26] MEDS: Ibuprofen 400 MG Tab PO PRN ×2 (17:27→23:59)
[2021-08-26] MEDS: Lactulose Soln 10 GM/15 ML 30 ML UD Cup PO SCH (21:09)
[2021-08-26] MEDS: Tamsulosin 0.4 MG Cap.ER PO SCH (21:09)
[2021-08-26] MEDS: atorvaSTATin 10 MG Tab PO SCH (21:09)
[2021-08-26] MEDS: Mirtazapine 15 MG Tab PO SCH (21:10)
[2021-08-26] MEDS: Heparin Sodium 5,000 Units/ML Vial SUBCUT SCH (21:10)
[2021-08-26] MEDS: Furosemide 20 MG/2 ML VIAL IVPUSH SCH (21:56)
[2021-08-27] MEDS: Furosemide 20 MG/2 ML VIAL IVPUSH SCH (05:32)
[2021-08-27] MEDS: Heparin Sodium 5,000 Units/ML Vial SUBCUT SCH ×3 (05:32→21:01)
[2021-08-27 07:08] LABS: ANION GAP 9.5 mEq/L (7-13); CHLORIDE,CL 106 mmol/L (98-107); SODIUM,NA 140 mmol/L (136-145)
[2021-08-27] MEDS: Lactulose Soln 10 GM/15 ML 30 ML UD Cup PO SCH ×3 (08:52→21:57)
[2021-08-27] MEDS: Aspirin 81 MG Tab.Chew PO SCH (08:55)
[2021-08-27] MEDS: Potassium Chloride 10 MEQ Tab.ER PO SCH (08:55)
[2021-08-27] MEDS: Carvedilol 3.125 MG Tab PO SCH ×3 (08:56→17:22)
[2021-08-27] MEDS ORDERED: Spironolactone 25 MG Tab PO SCH (09:00)
[2021-08-27] MEDS ORDERED: Lisinopril 5 MG Tab PO SCH (09:00)
[2021-08-27] MEDS ORDERED: Metolazone 2.5 MG Tab PO ONE (16:26)
[2021-08-27] MEDS ORDERED: Furosemide 80 MG Tab PO SCH (16:30)
[2021-08-27] MEDS: Tamsulosin 0.4 MG Cap.ER PO SCH (21:00)
[2021-08-27] MEDS: Mirtazapine 15 MG Tab PO SCH (21:01)
[2021-08-27] MEDS: atorvaSTATin 10 MG Tab PO SCH (21:01)
--- NOTE | 2021-08-27 22:44 | PCM.PN ---
- General Info Date of Service: 08/27/21 - Patient Data Vitals - Most Recent: Last Vital Signs Temp 98.2 F 08/27/21 20:00 Pulse 102 H 08/27/21 20:00 Resp 20 08/27/21 20:00 BP 114/73 08/27/21 20:00 Pulse Ox 95 08/27/21 20:00 Weight - Most Recent: 196 lb 9.6 oz I&O - Last 24 Hours: Intake & Output 08/27/21 08/27/21 08/27/21 06:59 14:59 22:59 Intake Total 710 560 Balance 710 560 Lab Results Last 24 Hours: Laboratory Results - last 24 hr 08/27/21 08/27/21 08/27/21 Range/Units 06:31 06:31 06:31 WBC 5.1 (5.0-10.0) 10^3/uL RBC 4.51 L (4.6-6.2) 10^6/uL Hgb 10.4 L (14.0-18.0) g/dL Hct 34.4 L (40.0-54.0) % MCV 76.3 L (80-100) fL MCH 23.1 L (27.0-34.0) pg MCHC 30.2 L (33.0-35.0) g/dL Plt Count 317 (150-450) 10^3/uL Sodium 140 (136-145) mmol/L Potassium 3.5 (3.5-5.1) mmol/L Chloride 106 (98-107) mmol/L Carbon Dioxide 28 (21-32) mmol/L Anion Gap 9.5 (7-13) mEq/L BUN 18 (7-18) mg/dL Creatinine 1.14 (0.70-1.30) mg/dL Est Cr Clr Drug Dosing 78.27 mL/min Estimated GFR (MDRD) > 60 Glucose 89 (70-99) mg/dL Calcium 8.4 L (8.5-10.1) mg/dL Phosphorus 3.5 (2.6-4.7) mg/dL Magnesium 2.3 (1.8-2.4) mg/dL Total Bilirubin 1.7 H (0.2-1.0) mg/dL Direct Bilirubin 1.0 H (0.0-0.2) mg/dL Indirect Bilirubin 0.7 AST 25 (15-37) U/L ALT 21 (16-63) U/L Alkaline Phosphatase 148 H (46-116) U/L Ammonia 24 (11-32) umol/L Total Protein 7.2 (6.4-8.2) g/dL Albumin 2.8 L (3.4-5.0) g/dL Globulin 4.4 Albumin/Globulin Ratio 0.64 Med Orders - Current: Current Medications Acetaminophen (Acetaminophen 325 Mg Tab) 650 mg PO Q4H PRN PRN Reason: Pain (Mild 1-3)/fever Aspirin (Aspirin 81 Mg Tab.Chew) 81 mg PO WITHBREAKFAST [facility] Last Admin: 08/27/21 08:55 Dose: 81 mg Documented by: Atorvastatin Calcium (Atorvastatin 10 Mg Tab) 10 mg PO BEDTIME [facility] Last Admin: 08/27/21 21:01 Dose: 10 mg Documented by: Carvedilol (Carvedilol 3.125 Mg Tab) 3.125 mg PO BIDMEALS [facility] Last Admin: 08/27/21 17:22 Dose: Not Given Documented by: Furosemide (Furosemide 80 Mg Tab) 80 mg PO BIDDIURETIC [facility] Last Admin: 08/27/21 17:16 Dose: 80 mg Documented by: Heparin Sodium (Porcine) (Heparin Sodium 5,000 Units/Ml Vial) 5,000 units SUBCUT Q8HR [facility] Last Admin: 08/27/21 21:01 Dose: 5,000 units Documented by: Influenza Virus Vaccine (Pharmacy To Dose - Influenza Vaccine) 1 each IM DAILY [facility] Last Admin: 08/27/21 17:07 Dose: Not Given Documented by: Lactulose (Lactulose Soln 10 Gm/15 Ml 30 Ml Ud Cup) 20 gm PO BID [facility] Last Admin: 08/27/21 21:57 Dose: Not Given Documented by: Mirtazapine (Mirtazapine 15 Mg Tab) 30 mg PO BEDTIME [facility] Last Admin: 08/27/21 21:01 Dose: 30 mg Documented by: Potassium Chloride (Potassium Chloride 10 Meq Tab.Er) 20 meq PO WITHBREAKFAST [facility] Last Admin: 08/27/21 08:55 Dose: 20 meq Documented by: Sodium Chloride (Sodium Chloride 0.9% 10 Ml Syringe) 10 ml FLUSH ASDIRECTED PRN PRN Reason: Keep Vein Open Tamsulosin HCl (Tamsulosin 0.4 Mg Cap.Er) 0.4 mg PO BEDTIME [facility] Last Admin: 08/27/21 21:00 Dose: 0.4 mg Documented by: Discontinued Medications Furosemide (Furosemide 40 Mg/4 Ml Vial) 40 mg IVPUSH ONETIME ONE Stop: 08/26/21 13:00 Last Admin: 08/26/21 13:19 Dose: 40 mg Documented by: Furosemide (Furosemide 20 Mg/2 Ml Vial) 20 mg IVPUSH Q8HR [facility] Last Admin: 08/27/21 05:32 Dose: 20 mg Documented by: Ibuprofen (Ibuprofen 400 Mg Tab) 400 mg PO Q6H PRN PRN Reason: moderate pain Last Admin: 08/26/21 23:59 Dose: 400 mg Documented by: Lisinopril (Lisinopril 5 Mg Tab) 2.5 mg PO DAILY [facility] Last Admin: 08/27/21 08:54 Dose: 2.5 mg Documented by: Metolazone (Metolazone 2.5 Mg Tab) 2.5 mg PO ONETIME ONE Stop: 08/27/21 16:27 Last Admin: 08/27/21 17:15 Dose: 2.5 mg Documented by: Potassium Chloride (Potassium Chloride 10 Meq Tab.Er) 40 meq PO TIDMEALS GREG Stop: 08/26/21 17:01 Last Admin: 08/26/21 17:18 Dose: 40 meq Documented by: Spironolactone (Spironolactone 25 Mg Tab) 50 mg PO DAILY [facility] Last Admin: 08/27/21 08:55 Dose: 50 mg Documented by: - Patient Data Lab Results Last 24 hrs: Laboratory Results - last 24 hr 08/27/21 08/27/21 08/27/21 Range/Units 06:31 06:31 06:31 WBC 5.1 (5.0-10.0) 10^3/uL RBC 4.51 L (4.6-6.2) 10^6/uL Hgb 10.4 L (14.0-18.0) g/dL Hct 34.4 L (40.0-54.0) % MCV 76.3 L (80-100) fL MCH 23.1 L (27.0-34.0) pg MCHC 30.2 L (33.0-35.0) g/dL Plt Count 317 (150-450) 10^3/uL Sodium 140 (136-145) mmol/L Potassium 3.5 (3.5-5.1) mmol/L Chloride 106 (98-107) mmol/L Carbon Dioxide 28 (21-32) mmol/L Anion Gap 9.5 (7-13) mEq/L BUN 18 (7-18) mg/dL Creatinine 1.14 (0.70-1.30) mg/dL Est Cr Clr Drug Dosing 78.27 mL/min Estimated GFR (MDRD) > 60 Glucose 89 (70-99) mg/dL Calcium 8.4 L (8.5-10.1) mg/dL Phosphorus 3.5 (2.6-4.7) mg/dL Magnesium 2.3 (1.8-2.4) mg/dL Total Bilirubin 1.7 H (0.2-1.0) mg/dL Direct Bilirubin 1.0 H (0.0-0.2) mg/dL Indirect Bilirubin 0.7 AST 25 (15-37) U/L ALT 21 (16-63) U/L Alkaline Phosphatase 148 H (46-116) U/L Ammonia 24 (11-32) umol/L Total Protein 7.2 (6.4-8.2) g/dL Albumin 2.8 L (3.4-5.0) g/dL Globulin 4.4 Albumin/Globulin Ratio 0.64 Result Diagrams: 08/27/21 06:31 08/27/21 06:31 Sepsis Event Note - Evaluation Sepsis Screening Result: No Definite Risk - Focused Exam Vital Signs: Vital Signs Temp Pulse Resp BP BP Pulse Ox 08/27/21 20:00 98.2 F 102 H 20 114/73 95 08/27/21 17:22 96/63 08/27/21 12:00 98.8 F 103 H 20 96 98 - Problem List Review Problem List Initiated/Reviewed/Updated: Yes - My Orders Last 24 Hours: My Active Orders 08/27/21 16:30 Furosemide [Lasix] 80 mg PO BIDDIURETIC - Plan Plan:: HOSPITALIST PROGRESS NOTE SUBJECTIVE: Improving dyspnea on exertion, resolved BLE edema. No chest pain. ROS otherwise negative for major or concerning findings. OBJECTIVE: Vitals reviewed. I/O reviewed. Lungs are clear to auscultation. Grade 4/6 murmur in tricuspid region. No BLE edema. Physical exam otherwise negative for concerning findings. I viewed lab and imaging results. ASSESSMENT / PLAN: Phillip was admitted on 08/26 for dyspnea on exertion, BLE edema and weight gain (230s <-- 180s in late 07/2021). He had initially presented on 08/20 but for some reason did not get hospitalized. Acute on chronic diastolic heart failure NYHA class 2. Concurrent PHTN and tricuspid regurg. He reported that symptoms have been unimproved despite doubling home lasix dose. Urine output approx 1L in first 24h, weight drop 190s <-- 230s (?error). Switched lasix from IV to PO (80mg daily; home dose 40mg) and gave one dose of metolazone 2.5mg on 08/27. Concurrent episodic hypotension precludes aggressive diuresis. Recent chest pain with bilat shoulder radiation. On discussion on 08/27, mentioned pain to be non-exertional and lasting for a few seconds each. Trop non-concerning; EKG on 08/[address] depression in anterior and septal leads similar to prior; repeat EKG ordered for 08/28. CAD, h/o CABG. Presence of bioprosthetic mitral valve. Mild asymptomatic hyperammonemia on presentation. Resolved within 24h. Of note: H/o hepatitis C, per [facility] record; h/o fatty liver. Homelessness. Will need sample case porter's assistance. DVT px: heparin subcu Likely discharge in 2-3 days on stabilization of output and continued toleration of adjusted diuretic regimen.
[2021-08-28 06:40] LABS: ANION GAP 12.8 mEq/L (7-13); CHLORIDE,CL 105 mmol/L (98-107); SODIUM,NA 140 mmol/L (136-145)
[2021-08-28] MEDS: Heparin Sodium 5,000 Units/ML Vial SUBCUT SCH ×3 (07:02→22:11)
[2021-08-28] MEDS: Furosemide 20 MG/2 ML VIAL IVPUSH SCH (07:18)
[2021-08-28] MEDS: Aspirin 81 MG Tab.Chew PO SCH (08:40)
[2021-08-28] MEDS: Potassium Chloride 10 MEQ Tab.ER PO SCH (08:40)
[2021-08-28] MEDS: Carvedilol 3.125 MG Tab PO SCH (08:40)
[2021-08-28] MEDS ORDERED: Gabapentin 300 MG Cap PO ONE (09:43)
[2021-08-28] MEDS ORDERED: Iron Sucrose Complex 100 MG/5 ML SDV IVPUSH ONE (14:39)
--- NOTE | 2021-08-28 14:44 | PCM.PN ---
- General Info Date of Service: 08/28/21 - Patient Data Vitals - Most Recent: Last Vital Signs Temp 98.1 F 08/28/21 12:00 Pulse 101 H 08/28/21 12:00 Resp 18 08/28/21 12:00 BP 128/74 08/28/21 12:00 Pulse Ox 93 L 08/28/21 12:00 Weight - Most Recent: 188 lb 3.2 oz I&O - Last 24 Hours: Intake & Output 08/27/21 08/28/21 08/28/21 22:59 06:59 14:59 Intake Total 560 400 Output Total 1000 Balance 560 -600 Lab Results Last 24 Hours: Laboratory Results - last 24 hr 08/26/21 08/28/21 Range/Units 11:43 05:20 Sodium 140 (136-145) mmol/L Potassium 3.8 (3.5-5.1) mmol/L Chloride 105 (98-107) mmol/L Carbon Dioxide 26 (21-32) mmol/L Anion Gap 12.8 (7-13) mEq/L BUN 18 (7-18) mg/dL Creatinine 1.10 (0.70-1.30) mg/dL Est Cr Clr Drug Dosing 81.11 mL/min Estimated GFR (MDRD) > 60 Glucose 106 H (70-99) mg/dL Calcium 8.3 L (8.5-10.1) mg/dL Iron 20 L (65-175) ug/dL TIBC 424 (250-450) ug/dL % Saturation 4.7 L (20.0-50.0) % Ferritin 31 (26-388) mg/mL Med Orders - Current: Current Medications Acetaminophen (Acetaminophen 325 Mg Tab) 650 mg PO Q4H PRN PRN Reason: Pain (Mild 1-3)/fever Aspirin (Aspirin 81 Mg Tab.Chew) 81 mg PO WITHBREAKFAST [facility] Last Admin: 08/28/21 08:40 Dose: 81 mg Documented by: Atorvastatin Calcium (Atorvastatin 10 Mg Tab) 10 mg PO BEDTIME [facility] Last Admin: 08/27/21 21:01 Dose: 10 mg Documented by: Carvedilol (Carvedilol 3.125 Mg Tab) 3.125 mg PO BIDMEALS [facility] Last Admin: 08/28/21 08:40 Dose: 3.125 mg Documented by: Furosemide (Furosemide 80 Mg Tab) 80 mg PO DAILY [facility] Gabapentin (Gabapentin 300 Mg Cap) 300 mg PO BEDTIME PRN PRN Reason: Other Heparin Sodium (Porcine) (Heparin Sodium 5,000 Units/Ml Vial) 5,000 units SUBCUT Q8HR [facility] Last Admin: 08/28/21 07:02 Dose: 5,000 units Documented by: Influenza Virus Vaccine (Pharmacy To Dose - Influenza Vaccine) 1 each IM DAILY [facility] Last Admin: 08/28/21 13:35 Dose: Not Given Documented by: Iron Sucrose (Iron Sucrose Complex 100 Mg/5 Ml Sdv) 200 mg IVPUSH ONETIME ONE Stop: 08/28/21 14:40 Mirtazapine (Mirtazapine 15 Mg Tab) 30 mg PO BEDTIME [facility] Last Admin: 08/27/21 21:01 Dose: 30 mg Documented by: Potassium Chloride (Potassium Chloride 10 Meq Tab.Er) 20 meq PO WITHBREAKFAST [facility] Last Admin: 08/28/21 08:40 Dose: 20 meq Documented by: Sodium Chloride (Sodium Chloride 0.9% 10 Ml Syringe) 10 ml FLUSH ASDIRECTED PRN PRN Reason: Keep Vein Open Tamsulosin HCl (Tamsulosin 0.4 Mg Cap.Er) 0.4 mg PO BEDTIME [facility] Last Admin: 08/27/21 21:00 Dose: 0.4 mg Documented by: Discontinued Medications Furosemide (Furosemide 40 Mg/4 Ml Vial) 40 mg IVPUSH ONETIME ONE Stop: 08/26/21 13:00 Last Admin: 08/26/21 13:19 Dose: 40 mg Documented by: Furosemide (Furosemide 20 Mg/2 Ml Vial) 20 mg IVPUSH Q8HR [facility] Last Admin: 08/28/21 07:18 Dose: Not Given Documented by: Furosemide (Furosemide 80 Mg Tab) 80 mg PO BIDDIURETIC [facility] Last Admin: 08/27/21 17:16 Dose: 80 mg Documented by: Gabapentin (Gabapentin 300 Mg Cap) 300 mg PO ONETIME ONE Stop: 08/28/21 09:44 Last Admin: 08/28/21 09:45 Dose: 300 mg Documented by: Ibuprofen (Ibuprofen 400 Mg Tab) 400 mg PO Q6H PRN PRN Reason: moderate pain Last Admin: 08/26/21 23:59 Dose: 400 mg Documented by: Lactulose (Lactulose Soln 10 Gm/15 Ml 30 Ml Ud Cup) 20 gm PO BID [facility] Last Admin: 08/27/21 21:57 Dose: Not Given Documented by: Lisinopril (Lisinopril 5 Mg Tab) 2.5 mg PO DAILY [facility] Last Admin: 08/27/21 08:54 Dose: 2.5 mg Documented by: Metolazone (Metolazone 2.5 Mg Tab) 2.5 mg PO ONETIME ONE Stop: 08/27/21 16:27 Last Admin: 08/27/21 17:15 Dose: 2.5 mg Documented by: Potassium Chloride (Potassium Chloride 10 Meq Tab.Er) 40 meq PO TIDMEALS [facility] Stop: 08/26/21 17:01 Last Admin: 08/26/21 17:18 Dose: 40 meq Documented by: Spironolactone (Spironolactone 25 Mg Tab) 50 mg PO DAILY [facility] Last Admin: 08/27/21 08:55 Dose: 50 mg Documented by: - Patient Data Lab Results Last 24 hrs: Laboratory Results - last 24 hr 08/26/21 08/28/21 Range/Units 11:43 05:20 Sodium 140 (136-145) mmol/L Potassium 3.8 (3.5-5.1) mmol/L Chloride 105 (98-107) mmol/L Carbon Dioxide 26 (21-32) mmol/L Anion Gap 12.8 (7-13) mEq/L BUN 18 (7-18) mg/dL Creatinine 1.10 (0.70-1.30) mg/dL Est Cr Clr Drug Dosing 81.11 mL/min Estimated GFR (MDRD) > 60 Glucose 106 H (70-99) mg/dL Calcium 8.3 L (8.5-10.1) mg/dL Iron 20 L (65-175) ug/dL TIBC 424 (250-450) ug/dL % Saturation 4.7 L (20.0-50.0) % Ferritin 31 (26-388) mg/mL Result Diagrams: 08/27/21 06:31 08/28/21 05:20 Sepsis Event Note - Evaluation Sepsis Screening Result: No Definite Risk - Focused Exam Vital Signs: Vital Signs Temp Pulse Pulse Resp BP BP Pulse Ox 08/28/21 12:00 98.1 F 101 H 18 128/74 93 L 08/28/21 08:40 100 142/88 H 08/28/21 08:00 98.1 F 110 H 16 120/81 90 L 08/28/21 04:00 99.4 F 107 H 20 118/81 96 - Problem List Review Problem List Initiated/Reviewed/Updated: Yes - My Orders Last 24 Hours: My Active Orders 08/28/21 Breakfast Fluid Restriction [DIET] Heart Healthy Diet [DIET] 08/28/21 09:30 Intake and Output Strict [RC] ASDIRECTED 08/28/21 09:36 Gabapentin [Neurontin] 300 mg PO BEDTIME PRN 08/28/21 09:44 Telemetry Monitoring [Cardiac Monitoring] [RC] 08/28/21 09:47 Hemoccult, Stool [OCCULT BLOOD DIAGNOSTIC] [OP] Routine 08/28/21 14:39 Iron Sucrose Complex [Venofer] 200 mg IVPUSH ONETIME ONE 08/28/21 14:45 Furosemide [Lasix] 80 mg PO DAILY 08/29/21 05:11 BASIC METABOLIC PANEL,BMP [CHEM] AM CBC WITH AUTO DIFF [HEME] AM HEPATIC FUNCTION PANEL,HFP [CHEM] AM INR,PT,PROTHROMBIN TIME [COAG] AM MAGNESIUM [CHEM] AM 08/30/21 05:11 BASIC METABOLIC PANEL,BMP [CHEM] AM 08/31/21 05:11 BASIC METABOLIC PANEL,BMP [CHEM] AM 09/01/21 05:11 BASIC METABOLIC PANEL,BMP [CHEM] AM 09/02/21 05:11 BASIC METABOLIC PANEL,BMP [CHEM] AM - Plan Plan:: HOSPITALIST PROGRESS NOTE SUBJECTIVE: Was unable to sleep well overnight due to burning and cramping pain in bilat legs and feet; a couple of years of these symptoms. Reported anal pain on defecation and presence of small amount of blood in soft stool overnight. Improving dyspnea on exertion, resolved BLE edema. No chest pain. A 4-point ROS of 7 systems othewise negative for major or concerning findings. OBJECTIVE: Vitals reviewed. I/O reviewed. Lungs are clear to auscultation. Grade 4/6 murmur in tricuspid region. Rectal exam showed no visible perineal lesion; however, tender in anal canal on digital exam; non-tender prostate; no blood on glove. No BLE edema. Sensations intact in BLEs. Physical exam otherwise negative for concerning findings. I viewed lab and imaging results. ASSESSMENT / PLAN: Phillip was admitted on 11/24 for dyspnea on exertion, BLE edema and weight gain (230s <-- 180s in late 07/2021) despite reported doubling of home lasix dose by patient. He had initially presented on 08/20 but declined hospitalization at that time. Acute on chronic diastolic heart failure NYHA class 2. Concurrent PHTN and tricuspid regurg. Urine output approx 1L every 24h, weight drop 190s <-- 230s (?error). Switched lasix from IV to PO (80mg daily; home dose 40mg) and gave one dose of metolazone 2.5mg on 08/27; continued lasix 80mg PO from 08/28. Home coreg increased to 6.2mg BID (from 3.1mg BID) on 08/28 due to persistent mild tachycardia. Recent chest pain with bilat shoulder radiation. On discussion on 08/27, mentioned pain to be non-exertional and lasting for a few seconds each. Trop non-concerning; EKG on 08/[address] depression in anterior and septal leads similar to prior; rhythm was read as "a-fib" by machine but P-wave visible on EKG as well as telemetry. Iron deficiency anemia. Contributing to acute on chronic heart failure. Venofer 200mg IV x1 on 08/28. Probable anal fissure. Tender anal canal with bloody stool on night of 08/27. Lidocaine 2% topical jelly to anal region BID. If unhelpful, alternative causes and detailed eval may be considered. Due to concurrent tachycardia, blood culture ordered 08/28 to rule out perineal sepsis. CAD, h/o CABG. Presence of bioprosthetic mitral valve. Mild asymptomatic hyperammonemia on presentation. Resolved within 24h. H/o hepatitis C, per [facility] record. H/o fatty liver; however, considering hypoalbuminemia and historically elevated INR, cirrhosis possible. Outpatient eval can be recommended. H/o meth use, as recently as 06/2021. Homelessness. Will need shoe caser's assistance. DVT px: heparin subcu Likely discharge in 1-2 days on stabilization of output and continued toleration of adjusted diuretic regimen.
[2021-08-28] MEDS ORDERED: Furosemide 80 MG Tab PO SCH (14:45)
[2021-08-28] MEDS: Lidocaine 2% Jelly 5 ML Tube TOP SCH ×2 (15:17→22:12)
--- NOTE | 2021-08-28 16:16 | CR ---
PROCEDURE INFORMATION: Exam: XR Chest Exam date and time: 08/26/2021 3:40 PM Age: 50 years old Clinical indication: Shortness of breath; Additional info: SOB TECHNIQUE: Imaging protocol: XR of the chest. Views: 1 view. COMPARISON: CR Chest 1V Frontal 06/29/2021 4:52 AM FINDINGS: Tubes, catheters and devices: There are sternal wires consistent with previous sternotomy incision. Lungs: Atelectatic changes noted within both lung bases. Pleural spaces: There is no evidence of pneumothorax. Heart/Mediastinum: Heart demonstrates mild diffuse enlargement. Bones/joints: Unremarkable. IMPRESSION: 1. Heart demonstrates mild diffuse enlargement. 2. Atelectatic changes noted within both lung bases.
[2021-08-28] MEDS: Carvedilol 6.25 MG Tab PO SCH (19:45)
[2021-08-28] MEDS: Tamsulosin 0.4 MG Cap.ER PO SCH (22:11)
[2021-08-28] MEDS: Mirtazapine 15 MG Tab PO SCH (22:11)
[2021-08-28] MEDS: atorvaSTATin 10 MG Tab PO SCH (22:11)
[2021-08-28] MEDS: Gabapentin 300 MG Cap PO PRN (22:44)
[2021-08-29] MEDS: Heparin Sodium 5,000 Units/ML Vial SUBCUT SCH ×3 (05:35→21:02)
[2021-08-29 06:54] LABS: CHLORIDE,CL 104 mmol/L (98-107)
[2021-08-29 07:31] LABS: SODIUM,NA 141 mmol/L (136-145)
[2021-08-29] MEDS: Aspirin 81 MG Tab.Chew PO SCH (08:41)
[2021-08-29] MEDS: Potassium Chloride 10 MEQ Tab.ER PO SCH (08:41)
[2021-08-29] MEDS: Furosemide 40 MG Tab PO SCH (08:41)
[2021-08-29] MEDS: Carvedilol 6.25 MG Tab PO SCH ×2 (08:42→17:56)
[2021-08-29] MEDS: Lidocaine 2% Jelly 5 ML Tube TOP SCH ×2 (09:06→21:10)
--- NOTE | 2021-08-29 11:52 | PCM.PN ---
- General Info Date of Service: 08/29/21 Admission Dx/Problem (Free Text): Admission Diagnosis/Problem Admission Diagnosis/Problem CHF, Congestive heart failure Subjective Update: Pt feels better. frustrated today that he thinks he needs to be on disability and has no one to help him get an apartment or phone or money. He is tired of being homeless. Doesnt really speak to his kids often. Functional Status: Reports: Pain Controlled - Review of Systems General: Reports: No Symptoms HEENT: Reports: No Symptoms Pulmonary: Reports: No Symptoms Cardiovascular: Reports: No Symptoms Gastrointestinal: Reports: No Symptoms Genitourinary: Reports: No Symptoms Musculoskeletal: Reports: No Symptoms Skin: Reports: No Symptoms Neurological: Reports: No Symptoms Psychiatric: Reports: No Symptoms - Patient Data Vitals - Most Recent: Last Vital Signs Temp 99.5 F 08/29/21 08:00 Pulse 105 H 08/29/21 08:42 Resp 20 08/29/21 08:00 BP 100/66 08/29/21 08:42 Pulse Ox 98 08/29/21 08:00 Weight - Most Recent: 175 lb 9.6 oz I&O - Last 24 Hours: Intake & Output 08/28/21 08/29/21 08/29/21 22:59 06:59 14:59 Intake Total 1150 360 Output Total 2000 Balance -850 360 Lab Results Last 24 Hours: Laboratory Results - last 24 hr 08/29/21 08/29/21 08/29/21 Range/Units 05:45 05:45 05:45 WBC 5.5 (5.0-10.0) 10^3/uL RBC 4.99 (4.6-6.2) 10^6/uL Hgb 11.4 L (14.0-18.0) g/dL Hct 38.0 L (40.0-54.0) % MCV 76.2 L (80-100) fL MCH 22.8 L (27.0-34.0) pg MCHC 30.0 L (33.0-35.0) g/dL Plt Count 372 (150-450) 10^3/uL Neut % (Auto) 68.6 (42.2-75.2) % Lymph % (Auto) 16.1 L (20.5-50.1) % [place] % (Auto) 10.6 H (2-8) % Eos % (Auto) 2.9 (1.0-3.0) % Baso % (Auto) 1.8 H (0.0-1.0) % PT 12.1 H (9.0-12.0) SEC INR 1.2 (0.9-1.2) Sodium 141 (136-145) mmol/L Potassium 4.0 (3.5-5.1) mmol/L Chloride 104 (98-107) mmol/L Carbon Dioxide 28 (21-32) mmol/L Anion Gap 13.0 (7-13) mEq/L BUN 18 (7-18) mg/dL Creatinine 1.15 (0.70-1.30) mg/dL Est Cr Clr Drug Dosing 77.58 mL/min Estimated GFR (MDRD) > 60 Glucose 106 H (70-99) mg/dL Calcium 8.7 (8.5-10.1) mg/dL Magnesium 2.2 (1.8-2.4) mg/dL Total Bilirubin 1.4 H (0.2-1.0) mg/dL Direct Bilirubin 0.8 H (0.0-0.2) mg/dL Indirect Bilirubin 0.6 AST 26 (15-37) U/L ALT 19 (16-63) U/L Alkaline Phosphatase 159 H (46-116) U/L C-Reactive Protein 1.3 H (0.0-0.9) mg/dL Total Protein 7.6 (6.4-8.2) g/dL Albumin 3.0 L (3.4-5.0) g/dL Globulin 4.6 Albumin/Globulin Ratio 0.65 Med Orders - Current: Current Medications Acetaminophen (Acetaminophen 325 Mg Tab) 650 mg PO Q4H PRN PRN Reason: Pain (Mild 1-3)/fever Aspirin (Aspirin 81 Mg Tab.Chew) 81 mg PO WITHBREAKFAST [facility] Last Admin: 08/29/21 08:41 Dose: 81 mg Documented by: Atorvastatin Calcium (Atorvastatin 10 Mg Tab) 10 mg PO BEDTIME [facility] Last Admin: 08/28/21 22:11 Dose: 10 mg Documented by: Carvedilol (Carvedilol 6.25 Mg Tab) 6.2 mg PO BIDMEALS [facility] Last Admin: 08/29/21 08:42 Dose: Not Given Documented by: Furosemide (Furosemide 40 Mg Tab) 40 mg PO DAILY [facility] Last Admin: 08/29/21 08:41 Dose: 40 mg Documented by: Gabapentin (Gabapentin 300 Mg Cap) 300 mg PO BEDTIME PRN PRN Reason: Other Last Admin: 08/28/21 22:44 Dose: 300 mg Documented by: Heparin Sodium (Porcine) (Heparin Sodium 5,000 Units/Ml Vial) 5,000 units SUBCUT Q8HR [facility] Last Admin: 08/29/21 05:35 Dose: 5,000 units Documented by: Influenza Virus Vaccine (Pharmacy To Dose - Influenza Vaccine) 1 each IM DAILY [facility] Last Admin: 08/28/21 13:35 Dose: Not Given Documented by: Lidocaine HCl (Lidocaine 2% Jelly 5 Ml Tube) 5 ml TOP BID [facility] Last Admin: 08/29/21 09:06 Dose: Not Given Documented by: Mirtazapine (Mirtazapine 15 Mg Tab) 30 mg PO BEDTIME [facility] Last Admin: 08/28/21 22:11 Dose: 30 mg Documented by: Potassium Chloride (Potassium Chloride 10 Meq Tab.Er) 20 meq PO WITHBREAKFAST [facility] Last Admin: 08/29/21 08:41 Dose: 20 meq Documented by: Sodium Chloride (Sodium Chloride 0.9% 10 Ml Syringe) 10 ml FLUSH ASDIRECTED PRN PRN Reason: Keep Vein Open Tamsulosin HCl (Tamsulosin 0.4 Mg Cap.Er) 0.4 mg PO BEDTIME [facility] Last Admin: 08/28/21 22:11 Dose: 0.4 mg Documented by: Discontinued Medications Carvedilol (Carvedilol 3.125 Mg Tab) 3.125 mg PO BIDMEALS [facility] Last Admin: 08/28/21 08:40 Dose: 3.125 mg Documented by: Furosemide (Furosemide 40 Mg/4 Ml Vial) 40 mg IVPUSH ONETIME ONE Stop: 08/26/21 13:00 Last Admin: 08/26/21 13:19 Dose: 40 mg Documented by: Furosemide (Furosemide 20 Mg/2 Ml Vial) 20 mg IVPUSH Q8HR [facility] Last Admin: 08/28/21 07:18 Dose: Not Given Documented by: Furosemide (Furosemide 80 Mg Tab) 80 mg PO BIDDIURETIC [facility] Last Admin: 08/27/21 17:16 Dose: 80 mg Documented by: Furosemide (Furosemide 80 Mg Tab) 80 mg PO DAILY [facility] Last Admin: 08/28/21 15:17 Dose: 80 mg Documented by: Gabapentin (Gabapentin 300 Mg Cap) 300 mg PO ONETIME ONE Stop: 08/28/21 09:44 Last Admin: 08/28/21 09:45 Dose: 300 mg Documented by: Ibuprofen (Ibuprofen 400 Mg Tab) 400 mg PO Q6H PRN PRN Reason: moderate pain Last Admin: 08/26/21 23:59 Dose: 400 mg Documented by: Iron Sucrose (Iron Sucrose Complex 100 Mg/5 Ml Sdv) 200 mg IVPUSH ONETIME ONE Stop: 08/28/21 14:40 Last Admin: 08/28/21 16:03 Dose: 200 mg Documented by: Lactulose (Lactulose Soln 10 Gm/15 Ml 30 Ml Ud Cup) 20 gm PO BID [facility] Last Admin: 08/27/21 21:57 Dose: Not Given Documented by: Lisinopril (Lisinopril 5 Mg Tab) 2.5 mg PO DAILY [facility] Last Admin: 08/27/21 08:54 Dose: 2.5 mg Documented by: Metolazone (Metolazone 2.5 Mg Tab) 2.5 mg PO ONETIME ONE Stop: 08/27/21 16:27 Last Admin: 08/27/21 17:15 Dose: 2.5 mg Documented by: Potassium Chloride (Potassium Chloride 10 Meq Tab.Er) 40 meq PO TIDMEALS [facility] Stop: 08/26/21 17:01 Last Admin: 08/26/21 17:18 Dose: 40 meq Documented by: Spironolactone (Spironolactone 25 Mg Tab) 50 mg PO DAILY [facility] Last Admin: 08/27/21 08:55 Dose: 50 mg Documented by: Comments:: Hgb stable. diuretic dose decreased today and BP is still borderline hypotensive with systolic noted to be in the low 100s. - Exam Quality Assessment: DVT Prophylaxis. No: Supplemental Oxygen, Urine Catheter, Skin Breakdown General: Alert, Oriented, No Acute Distress HEENT: EOMI Neck: Supple, JVD Lungs: Clear to Auscultation, Normal Respiratory Effort. No: Decreased Breath Sounds, Crackles, Rales, Rhonchi, Wheezing Cardiovascular: Regular Rate, Regular Rhythm. No: No Murmurs GI/Abdominal Exam: Normal Bowel Sounds, Soft Extremities: Normal Inspection, Normal Range of Motion, No Pedal Edema Skin: Warm, Dry, Intact Neurological: No New Focal Deficit Psy/Mental Status: Alert, Agitated - Patient Data Lab Results Last 24 hrs: Laboratory Results - last 24 hr 08/29/21 08/29/21 08/29/21 Range/Units 05:45 05:45 05:45 WBC 5.5 (5.0-10.0) 10^3/uL RBC 4.99 (4.6-6.2) 10^6/uL Hgb 11.4 L (14.0-18.0) g/dL Hct 38.0 L (40.0-54.0) % MCV 76.2 L (80-100) fL MCH 22.8 L (27.0-34.0) pg MCHC 30.0 L (33.0-35.0) g/dL Plt Count 372 (150-450) 10^3/uL Neut % (Auto) 68.6 (42.2-75.2) % Lymph % (Auto) 16.1 L (20.5-50.1) % [place] % (Auto) 10.6 H (2-8) % Eos % (Auto) 2.9 (1.0-3.0) % Baso % (Auto) 1.8 H (0.0-1.0) % PT 12.1 H (9.0-12.0) SEC INR 1.2 (0.9-1.2) Sodium 141 (136-145) mmol/L Potassium 4.0 (3.5-5.1) mmol/L Chloride 104 (98-107) mmol/L Carbon Dioxide 28 (21-32) mmol/L Anion Gap 13.0 (7-13) mEq/L BUN 18 (7-18) mg/dL Creatinine 1.15 (0.70-1.30) mg/dL Est Cr Clr Drug Dosing 77.58 mL/min Estimated GFR (MDRD) > 60 Glucose 106 H (70-99) mg/dL Calcium 8.7 (8.5-10.1) mg/dL Magnesium 2.2 (1.8-2.4) mg/dL Total Bilirubin 1.4 H (0.2-1.0) mg/dL Direct Bilirubin 0.8 H (0.0-0.2) mg/dL Indirect Bilirubin 0.6 AST 26 (15-37) U/L ALT 19 (16-63) U/L Alkaline Phosphatase 159 H (46-116) U/L C-Reactive Protein 1.3 H (0.0-0.9) mg/dL Total Protein 7.6 (6.4-8.2) g/dL Albumin 3.0 L (3.4-5.0) g/dL Globulin 4.6 Albumin/Globulin Ratio 0.65 Result Diagrams: 08/29/21 05:45 08/29/21 05:45 Sepsis Event Note - Evaluation Sepsis Screening Result: No Definite Risk - Focused Exam Vital Signs: Vital Signs Temp Pulse Pulse Resp BP BP Pulse Ox 08/29/21 08:42 105 H 100/66 08/29/21 08:00 99.5 F 105 H 20 100/66 98 08/29/21 00:00 99.4 F 103 H 21 H 107/70 94 L - Problem List Review Problem List Initiated/Reviewed/Updated: Yes - My Orders Last 24 Hours: My Active Orders 08/29/21 09:00 Furosemide [Lasix] 40 mg PO DAILY - Plan Plan:: HOSPITALIST PROGRESS NOTE ASSESSMENT / PLAN: Phillip was admitted on 08/26 for dyspnea on exertion, BLE edema and weight gain (230s <-- 180s in late 07/2021) despite reported doubling of home lasix dose by patient. He had initially presented on 08/20 but declined hospitalization at that time. Acute on chronic diastolic heart failure NYHA class 2. pulmonary HTN Tricuspid regurgitation: - Switched lasix from IV to PO (80mg daily; home dose 40mg) and gave one dose of metolazone 2.5mg on 08/27; Home coreg 3.1mg BID continued. BP borderline hypotensive today. will continue to monitor overnight to insure safe discharge plan and optimal lasix dose at discharge. Recent chest pain with bilat shoulder radiation. On discussion on 08/27, mentioned pain to be non-exertional and lasting for a few seconds each. Trop non-concerning; EKG on 08/[address] depression in anterior and septal leads similar to prior; rhythm was read as "a-fib" by machine but P-wave visible on EKG as well as telemetry. Iron deficiency anemia. Contributing to acute on chronic heart failure. Venofer 200mg IV x1 on 11/26. Probable anal fissure. Tender anal canal with bloody stool on night of 08/27. Lidocaine 2% topical jelly to anal region BID. Chronic conditions: - CAD, h/o CABG. - Presence of bioprosthetic mitral valve. - Mild asymptomatic hyperammonemia on presentation. Resolved within 24h. - H/o hepatitis C, per [facility] record. H/o fatty liver; however, considering hypoalbuminemia and historically elevated INR, cirrhosis possible. Outpatient eval can be recommended. - h/o meth use, as recently as 06/2021. - Homelessness. Will need showcase trimmer's assistance. DVT px: heparin subcu Likely discharge tomorrow morning
[2021-08-29] MEDS: Mirtazapine 15 MG Tab PO SCH (21:01)
[2021-08-29] MEDS: atorvaSTATin 10 MG Tab PO SCH (21:01)
[2021-08-29] MEDS: Tamsulosin 0.4 MG Cap.ER PO SCH (21:02)
[2021-08-29] MEDS: Gabapentin 300 MG Cap PO PRN (21:04)
[2021-08-30] MEDS: Heparin Sodium 5,000 Units/ML Vial SUBCUT SCH (05:30)
[2021-08-30 06:20] LABS: ANION GAP 14.6 mEq/L (7-13); CHLORIDE,CL 102 mmol/L (98-107); SODIUM,NA 137 mmol/L (136-145)
[2021-08-30] MEDS: Furosemide 40 MG Tab PO SCH (09:11)
[2021-08-30] MEDS: Aspirin 81 MG Tab.Chew PO SCH (09:11)
[2021-08-30] MEDS: Potassium Chloride 10 MEQ Tab.ER PO SCH (09:12)
[2021-08-30] MEDS: Carvedilol 6.25 MG Tab PO SCH (09:12)
[2021-08-30] MEDS: Lidocaine 2% Jelly 5 ML Tube TOP SCH (09:15)
--- NOTE | 2021-08-30 10:07 | PCM.DCSUM1 ---
Discharge Summary - Hospital Course Free Text/Narrative:: see below Diagnosis: Stroke: No Modified Wilbarger Scale: No Signif.Disability Despite Sympt.Able to Carry Out Usual Act./Duties Modified Loraine Scale Score: 1 - Discharge Data Discharge Date: 08/30/21 (home with brother to [place]) Discharge Disposition: Home, Self-Care 01 Condition: Good - Referral to Home Health Primary Care Physician: PCP None - Patient Summary/Data Hospital Course: Phillip White is a 50 yo homeless M with PMH most significant for chf with preserved EF, bph, depression, drug use, hepatic steatosis and homelessness who presented initially to [facility] with c/o continued swelling in his legs and a report of shortness of breath. Per clinic records he had gained 17 pounds, He reported that he was only taking his lasix and none of his other home medications. associated symptoms included increased BLE edema in the previous 1- 2 weeks. The patient did not have any labs done today at the clinic, but was sent to ED for evaluation. While in the ED he was found to have 2+ pitting edema in BLE, BNP elevated in the 400s. Increased work of breathing noted. He was also found to be hypokalemic. He was started on IV lasix and was admitted for further evaluation and treatment. Borderline hypotension limited ability to aggressively diurese. Blood pressure was watched closely and home medication adjustments were made. Coreg increased wto 6.25mg bid and lisinopril was discontinued. Pt was found to be medically stable for discharge on the morning of 08/30/21. He was hemodynamically stable, had no peripheral edema and had been in contact with his brother from [place] and made arrangements to stay with him. he will need close follow up with his PCP or first available provider at [facility] and would greatly benefit from a referral to the heart failure clinic at that time. He should also have an echocardiogram if one has not been completed in the past 6 months. He noted that he had had some unintentional weight loss and a drop in his Hgb. He has never had a colonoscopy. It will also be very important that his PCP help arrange this at his post hospital follow up appointment. These visits will need to be arranged and approved by [facility] so they have not been scheduled at discharge. He is aware of this. He voiced understanding of this plan of care and had no further questions or concerns at the time of discharge. - Patient Instructions Diet: Heart Healthy Diet, Low Sodium Activity: As Tolerated Driving: May Drive Today Showering/Bathing: May Shower - Discharge Plan *PRESCRIPTION DRUG MONITORING PROGRAM REVIEWED*: Not Applicable *COPY OF PRESCRIPTION DRUG MONITORING REPORT IN PATIENT TANYA: Not Applicable Prescriptions/Med Rec: carvediloL [Carvedilol] 6.25 mg PO BID 30 Days #60 tablet Home Medications: Home Meds Furosemide [Lasix] 40 mg PO DAILY 08/27/20 [History] Gabapentin [Neurontin] 600 mg PO TID 08/27/20 [History] QUEtiapine [SEROquel] 100 mg PO BEDTIME 08/27/20 [History] Tamsulosin HCl [Flomax] 0.4 mg PO BEDTIME 08/27/20 [History] atorvaSTATin [Lipitor] 10 mg PO BEDTIME 08/27/20 [History] Mirtazapine 30 mg PO BEDTIME 03/20/21 [History] Nitroglycerin 0.4 mg SL ASDIRECTED PRN 03/20/21 [History] Acetaminophen [Tylenol] 650 mg PO Q4H PRN tablet 03/23/21 [Rx] Bacitracin [Bacitracin Oint] 0 gm TOP DAILY 14 Days #1 tube 03/23/21 [Rx] carvediloL [Carvedilol] 6.25 mg PO BID 30 Days #60 tablet 08/30/21 [Rx] Oxygen Therapy Mode: Room Air Patient Handouts: Heart Failure, Self-Care, [id number], Carvedilol Tablets Referrals: PCP,None [Primary Care Provider] - - Discharge Summary/Plan Comment DC Time >30 min.: Yes Total # of Minutes for Discharge Time: 45 - Patient Data Vitals - Most Recent: Last Vital Signs Temp 98.4 F 08/30/21 08:00 Pulse 104 H 08/30/21 09:12 Resp 20 08/30/21 08:00 BP 90/73 08/30/21 09:12 Pulse Ox 96 08/30/21 08:00 Weight - Most Recent: 175 lb 6.4 oz I&O - Last 24 hours: Intake & Output 08/29/21 08/30/21 08/30/21 22:59 06:59 14:59 Intake Total 460 150 Output Total 800 Balance -340 150 Lab Results - Last 24 hrs: Laboratory Results - last 24 hr 08/30/21 Range/Units 05:35 Sodium 137 (136-145) mmol/L Potassium 4.6 (3.5-5.1) mmol/L Chloride 102 (98-107) mmol/L Carbon Dioxide 25 (21-32) mmol/L Anion Gap 14.6 H (7-13) mEq/L BUN 17 (7-18) mg/dL Creatinine 0.99 (0.70-1.30) mg/dL Est Cr Clr Drug Dosing 90.12 mL/min Estimated GFR (MDRD) > 60 Glucose 91 (70-99) mg/dL Calcium 8.7 (8.5-10.1) mg/dL [facility] Results - Last 24 hrs: Microbiology 08/28/21 15:27 Aerobic Blood Culture - Preliminary Blood - Arm, Right NO GROWTH AFTER 1 DAY Anaerobic Blood Culture - Preliminary NO GROWTH AFTER 1 DAY 08/28/21 15:33 Aerobic Blood Culture - Preliminary Blood - Arm, Left NO GROWTH AFTER 1 DAY Anaerobic Blood Culture - Preliminary NO GROWTH AFTER 1 DAY Med Orders - Current: Current Medications Acetaminophen (Acetaminophen 325 Mg Tab) 650 mg PO Q4H PRN PRN Reason: Pain (Mild 1-3)/fever Aspirin (Aspirin 81 Mg Tab.Chew) 81 mg PO WITHBREAKFAST [facility] Last Admin: 08/30/21 09:11 Dose: 81 mg Documented by: Atorvastatin Calcium (Atorvastatin 10 Mg Tab) 10 mg PO BEDTIME [facility] Last Admin: 08/29/21 21:01 Dose: 10 mg Documented by: Carvedilol (Carvedilol 6.25 Mg Tab) 6.2 mg PO BIDMEALS [facility] Last Admin: 08/30/21 09:12 Dose: 6.2 mg Documented by: Furosemide (Furosemide 40 Mg Tab) 40 mg PO DAILY [facility] Last Admin: 08/30/21 09:11 Dose: 40 mg Documented by: Gabapentin (Gabapentin 300 Mg Cap) 300 mg PO BEDTIME PRN PRN Reason: Other Last Admin: 08/29/21 21:04 Dose: 300 mg Documented by: Heparin Sodium (Porcine) (Heparin Sodium 5,000 Units/Ml Vial) 5,000 units SUBCUT Q8HR [facility] Last Admin: 08/30/21 05:30 Dose: 5,000 units Documented by: Influenza Virus Vaccine (Pharmacy To Dose - Influenza Vaccine) 1 each IM DAILY [facility] Last Admin: 08/29/21 14:24 Dose: Not Given Documented by: Lidocaine HCl (Lidocaine 2% Jelly 5 Ml Tube) 5 ml TOP BID [facility] Last Admin: 08/30/21 09:15 Dose: Not Given Documented by: Mirtazapine (Mirtazapine 15 Mg Tab) 30 mg PO BEDTIME [facility] Last Admin: 08/29/21 21:01 Dose: 30 mg Documented by: Potassium Chloride (Potassium Chloride 10 Meq Tab.Er) 20 meq PO WITHBREAKFAST [facility] Last Admin: 08/30/21 09:12 Dose: 20 meq Documented by: Sodium Chloride (Sodium Chloride 0.9% 10 Ml Syringe) 10 ml FLUSH ASDIRECTED PRN PRN Reason: Keep Vein Open Tamsulosin HCl (Tamsulosin 0.4 Mg Cap.Er) 0.4 mg PO BEDTIME [facility] Last Admin: 08/29/21 21:02 Dose: 0.4 mg Documented by: Discontinued Medications Carvedilol (Carvedilol 3.125 Mg Tab) 3.125 mg PO BIDMEALS [facility] Last Admin: 08/28/21 08:40 Dose: 3.125 mg Documented by: Furosemide (Furosemide 40 Mg/4 Ml Vial) 40 mg IVPUSH ONETIME ONE Stop: 08/26/21 13:00 Last Admin: 08/26/21 13:19 Dose: 40 mg Documented by: Furosemide (Furosemide 20 Mg/2 Ml Vial) 20 mg IVPUSH Q8HR [facility] Last Admin: 08/28/21 07:18 Dose: Not Given Documented by: Furosemide (Furosemide 80 Mg Tab) 80 mg PO BIDDIURETIC [facility] Last Admin: 08/27/21 17:16 Dose: 80 mg Documented by: Furosemide (Furosemide 80 Mg Tab) 80 mg PO DAILY [facility] Last Admin: 08/28/21 15:17 Dose: 80 mg Documented by: Gabapentin (Gabapentin 300 Mg Cap) 300 mg PO ONETIME ONE Stop: 08/28/21 09:44 Last Admin: 08/28/21 09:45 Dose: 300 mg Documented by: Ibuprofen (Ibuprofen 400 Mg Tab) 400 mg PO Q6H PRN PRN Reason: moderate pain Last Admin: 08/26/21 23:59 Dose: 400 mg Documented by: Iron Sucrose (Iron Sucrose Complex 100 Mg/5 Ml Sdv) 200 mg IVPUSH ONETIME ONE Stop: 08/28/21 14:40 Last Admin: 08/28/21 16:03 Dose: 200 mg Documented by: Lactulose (Lactulose Soln 10 Gm/15 Ml 30 Ml Ud Cup) 20 gm PO BID [facility] Last Admin: 08/27/21 21:57 Dose: Not Given Documented by: Lisinopril (Lisinopril 5 Mg Tab) 2.5 mg PO DAILY [facility] Last Admin: 08/27/21 08:54 Dose: 2.5 mg Documented by: Metolazone (Metolazone 2.5 Mg Tab) 2.5 mg PO ONETIME ONE Stop: 08/27/21 16:27 Last Admin: 08/27/21 17:15 Dose: 2.5 mg Documented by: Potassium Chloride (Potassium Chloride 10 Meq Tab.Er) 40 meq PO TIDMEALS [facility] Stop: 08/26/21 17:01 Last Admin: 08/26/21 17:18 Dose: 40 meq Documented by: Spironolactone (Spironolactone 25 Mg Tab) 50 mg PO DAILY [facility] Last Admin: 08/27/21 08:55 Dose: 50 mg Documented by: *Q Meaningful Use (DIS) - VTE *Q VTE Mechanical Contraindications *Q: Tx/Proc Refused byPt VTE Pharmacological Contraindications *Q: Tx/Proc Refused by Pt VTE Anticoagulation Contraindications: Tx/proc Refused by PT - Stroke *Q Aspirin Contraindications Stroke *Q: Patient Refusal Anticoagulation Contraindications Stroke *Q: TX/PROC Refused by PT Antithrombotic Contraindications Stroke *Q: TX/PROC Refused by PT Statin Contraindications Stroke *Q: TX/PROC Refused by PT Rehabilitation Assessment Contraindication *Q: Tx/proc refused by pt - AMI *Q Aspirin Contraindications AMI *Q: TX/PROC Refused by PT Statin Contraindications AMI *Q: TX/Proc Refused by PT
[2021-08-30 12:24] VITALS: BP 105/68; PULSE 95
== END 2021-08-30 13:10 | disposition home or self-care (01) | DRG 291 ==
LOC: DL.ED 11:12 → DL.MS 13:07
PROVIDERS: ADMIT Internal Medicine; ATTEND Hospitalist
DX: I11.0 Hypertensive heart disease with heart failure (principal); I50.33 Acute on chronic diastolic (congestive) heart failure; E72.20 Disorder of urea cycle metabolism, unspecified; I07.1 Rheumatic tricuspid insufficiency; I27.20 Pulmonary hypertension, unspecified; E87.6 Hypokalemia; K76.0 Fatty (change of) liver, not elsewhere classified; I25.10 Atherosclerotic heart disease of native coronary artery without angina pectoris; Z20.822 Contact with and (suspected) exposure to COVID-19; F32.A Depression, unspecified; N40.0 Benign prostatic hyperplasia without lower urinary tract symptoms; F19.10 Other psychoactive substance abuse, uncomplicated; D50.9 Iron deficiency anemia, unspecified; K60.2 Anal fissure, unspecified; Z59.00 Homelessness unspecified; Z79.01 Long term (current) use of anticoagulants; Z95.2 Presence of prosthetic heart valve; I25.2 Old myocardial infarction; Z95.1 Presence of aortocoronary bypass graft; Z88.5 Allergy status to narcotic agent; Z88.6 Allergy status to analgesic agent; Z23 Encounter for immunization; Z79.899 Other long term (current) drug therapy
CPT/HCPCS: 36415; 71045; 80048; 80053; 80076; 80179; 80305-QW; 80307; 81003; 82140; 82728; 83540; 83550; 83605; 83735; 83880; 84100; 84484; 85025; 85027; 85610; 86140; 87040; 90686; 93005; 93306; 99285-25; A9270-GY; J1644; J1756; J1940; U0002

== ENCOUNTER 2021-09-24 19:07 | Emergency (ER) | payer MEDICAID ==
[2021-09-24 19:21] VITALS: BP 136/87; PULSE 108
[2021-09-24] MEDS ORDERED: Doxycycline Monohydrate 100 MG Cap PO ONE (19:52)
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
== END 2021-09-24 20:08 | disposition home or self-care (01) ==
LOC: DL.ED 19:07
DX: H01.001 Unspecified blepharitis right upper eyelid (principal); I11.0 Hypertensive heart disease with heart failure; I50.9 Heart failure, unspecified; I25.2 Old myocardial infarction; Z88.5 Allergy status to narcotic agent; Z88.8 Allergy status to other drugs, medicaments and biological substances; Z79.899 Other long term (current) drug therapy; Z86.16 Personal history of COVID-19; Z72.0 Tobacco use
CPT/HCPCS: 99283; A9270-GY

== ENCOUNTER 2021-10-06 11:29 | Emergency (ER) | payer MEDICAID ==
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
[2021-10-06] MEDS ORDERED: Sodium Chloride 0.9% 10 ML Syringe FLUSH PRN (12:38)
[2021-10-06] MEDS ORDERED: Potassium Chloride 10 MEQ in Premix Bag 1 BAG IV ONE (12:52)
[2021-10-06] MEDS ORDERED: Lidocaine 1% 30 ML SDV INJECT ONE (12:53)
[2021-10-06] MEDS ORDERED: Potassium Chloride 10 MEQ Tab.ER PO ONE (12:53)
[2021-10-06 13:32] LABS: ANION GAP 13.8 mEq/L (7-13)
[2021-10-06 14:03] VITALS: BP 132/109; PULSE 103
== END 2021-10-06 14:32 | disposition home or self-care (01) ==
LOC: DL.ED 11:29
DX: E87.6 Hypokalemia (principal); I11.0 Hypertensive heart disease with heart failure; I50.9 Heart failure, unspecified; I25.2 Old myocardial infarction; Z72.0 Tobacco use; Z91.19 Patient's noncompliance with other medical treatment and regimen; Z88.8 Allergy status to other drugs, medicaments and biological substances; Z88.5 Allergy status to narcotic agent; Z88.6 Allergy status to analgesic agent; Z79.899 Other long term (current) drug therapy; Z86.16 Personal history of COVID-19
CPT/HCPCS: 36415; 80053; 83735; 83880; 84484; 85025; 93005; 96365; 99285; A9270; J3480